=== PATIENT | male | born 1955 | race Hispanic/Latino ===

== ENCOUNTER 2018-04-03 13:52 | Inpatient (IN) | payer BC ==
--- NOTE | 2018-04-03 14:27 | ED PDOC ---
Arrival/HPI - General Chief Complaint: GI Problem Time Seen by Provider: 04/03/18 13:54 Historian: Patient - Critical Care Critical Care Minutes: 45 minutes - History of Present Illness Narrative History of Present Illness (Text): 04/03/18 14:27 63 year old male, with no significant past medical history and history of alcohol use, was referred to the ED by Dr. Bagley for medical evaluation of anemia + fatigue to r/o GI bleed and concern for bilateral oral tumors today. Patient informs bleeding from gums and black tarry stool associated with generalized abdominal pain for past month. Patient reports generalized weakness secondary to symptoms but denies any other medical complaints. Patient denies any fevers, chills, headache, dizziness, chest pain, shortness of breath, dyspnea on exertion, cough, nausea, vomiting, diarrhea, back pain, neck pain, or any other complaints. PMD: Dr. Bagley Time/Duration: > month Symptom Onset: Gradual Symptom Course: Unchanged Activities at Onset: Light Context: Other (Referred by Dr. Bagley) Past Medical History - Provider Review Nursing Documentation Reviewed: Yes - Infectious Disease Hx of Infectious Diseases: None Family/Social History - Physician Review Nursing Documentation Reviewed: Yes Family/Social History: Unknown Family HX Allergies/Home Meds Allergies/Adverse Reactions: Allergies No Known Allergies Allergy (Verified 04/03/18 22:52) Home Medications: Home Meds Medication Instructions Recorded Confirmed No Known Home Med 04/03/18 04/03/18 Review of Systems - Physician Review All systems were reviewed & negative as marked: Yes - Review of Systems Constitutional: Fatigue, Other (Generalized weakness). absent: Fevers Eyes: absent: Vision Changes, Photophobia, Eye Pain ENT: Other (Bleeding from gums). absent: Hearing Changes, Tinnitus Respiratory: absent: SOB, Cough Cardiovascular: absent: Chest Pain, Palpitations Gastrointestinal: Abdominal Pain, Hematochezia. absent: Constipation, Diarrhea Genitourinary Male: absent: Dysuria, Frequency Musculoskeletal: absent: Back Pain, Neck Pain Skin: absent: Rash Neurological: absent: Headache, Dizziness Psychiatric: absent: Anxiety Physical Exam Vital Signs Reviewed: Yes Vital Signs Temp Pulse Resp BP Pulse Ox 04/03/18 14:14 97.8 F 122 H 20 141/94 H 100 Temperature: Afebrile Blood Pressure: Hypertensive Pulse: Tachycardic Respiratory Rate: Normal Appearance: Positive for: Ill-Appearing, Cachectic Pain Distress: None Mental Status: Positive for: Alert and Oriented X 3 - Systems Exam Head: Present: Atraumatic, Normocephalic Pupils: Present: PERRL Extroacular Muscles: Present: EOMI Conjunctiva: Present: Normal Ears: Present: Normal Mouth: Present: Moist Mucous Membranes Neck: Present: Normal Range of Motion. No: Meningeal Signs Respiratory/Chest: Present: Clear to Auscultation, Good Air Exchange. No: Respiratory Distress, Accessory Muscle Use Cardiovascular: Present: Regular Rate and Rhythm, Normal S1, S2. No: Murmurs Abdomen: Present: Tenderness (Diffuse abdominal tenderness). No: Distention, Peritoneal Signs, Rebound, Guarding Rectal: Present: Other (+guaic) Back: Present: Normal Inspection. No: CVA Tenderness, Midline Tenderness Upper Extremity: Present: Normal Inspection. No: Cyanosis, Edema Lower Extremity: Present: Normal Inspection. No: Edema Neurological: Present: GCS=15, CN II-XII Intact, Speech Normal Skin: Present: Warm, Dry, Normal Color. No: Rashes Psychiatric: Present: Alert, Oriented x 3, Normal Insight, Normal Concentration Medical Decision Making ED Course and Treatment: 04/03/18 14:39 Impression: 63 year old male presents to the ED for evaluation of anemia, fatigue. Pt appears weak, diffusely. No FND. Abdominal mildly TTP in all [place]. +GUAIC. Likely GI Bleed vs anemia of chonric disease 2/2 etoh. Will seek labs. imaging. Pt denied any fall or trauma. He denies being any blood thinners. He notes that he is not vomiting blood, but that blood is coming out of mouth. No epistaxis. No appreciable bleeding lesions on visualization of oropharynx. Differential Diagnosis included but are not limited to: -- GI bleed Plan: -- Labs -- CT of Abdomen/Pelvis -- EKG -- Chest X-ray -- IV Fluids -- Reassess and disposition Prior Visits: Notes and results from previous visits were reviewed. Progress Notes: 04/03/18 14:39 EKG reviewed, shows sinus tachycardia at 107 bpm, No STEMI. PT afebrile, in NAD. 04/03/18 15:53 Hemoccult positive. Protonix ordered. JANES. Markedly increased WBC on labs: ?Cancer given clinical appearance and no infectious symptoms. 04/03/18 17:10 CT of Abdomen/Pelvis reviewed by radiologist. shows: IMPRESSION: There is a large amount of dense ascites consistent with hemoperitoneum. There is also a more discrete hematoma in the mesentery located at the level of the iliac crests anteriorly. This hematoma measures 5.8 x 7.2 cm. The etiology of this hemorrhage is uncertain. There is no evidence of free air to suggest bowel perforation. Hgb 8.5 but given findings will transfuse 3 units of blood ordered. Pt mentating well, MAEW, GCS15. Notes that he may have fallen last week on his bottom. No LOC or head impact. No other pain. Neck clear via NEXUS criteria. No FND on exam. No unilateral weakness, facial paralysis or slurred speech. ICU evaluated patient at bedside, accepts patient under their service. 04/03/18 17:13 Code Sepsis Activated, Anbiotics ordered. 04/03/18 17:[address] Bagley, who is aware and agrees with ED management plan, accepts patient under his service. Dr. Diaz on medicine consult. 04/03/18 17:13 Surgery resident paged. Will evaluate patient at bedside. 04/03/18 17:48 Surgery resident evaluated patient at bedside. Mass noted on XRAY: CT ordered. - Critical Care Critical Care Minutes: 45 minutes - RAD Interpretation Radiology Orders: 04/03/18 14:24 CHEST TWO VIEWS (PA/LAT) [RAD] Stat 04/03/18 14:26 ABDOMEN & PELVIS [ABD & PELVIS IV CONTRAST ONLY] [CT] Stat - Scribe Statement The provider has reviewed the documentation as recorded by the Scribcanelo Shipman. All medical record entries made by the Jovitaibe were at my direction and personally dictated by me. I have reviewed the chart and agree that the record accurately reflects my personal performance of the history, physical exam, medical decision making, and the department course for this patient. I have also personally directed, reviewed, and agree with the discharge instructions and disposition. Disposition/Present on Arrival - Present on Arrival Any Indicators Present on Arrival: No History of DVT/PE: No History of Uncontrolled Diabetes: No Urinary Catheter: No History of Decub. Ulcer: No History Surgical Site Infection Following: None - Disposition Have Diagnosis and Disposition been Completed?: Yes Diagnosis: Hemoperitoneum, Anemia, Leukocytosis, GI bleed Disposition: HOSPITALIZED Disposition Time: 17:42 Patient Problems: Current Active Problems Problem Status Onset Anemia Acute GI bleed Acute Hemoperitoneum Acute Leukocytosis Acute Condition: SERIOUS
[2018-04-03] MEDS: Sodium Chloride 0.9% 1,000 ML IV SCH (14:54)
[2018-04-03 15:08] LABS: HEMOGLOBIN 8.5 g/dL (14.0-18.0); MEAN CELL VOLUME 96.6 fl (80.0-105.0); MEAN CORPUSCULAR HEMOGLOBIN 32.2 pg (25.0-35.0); MEAN CORPUSCULAR HGB CONC 33.3 g/dl (31.0-37.0); RBC 2.64 10^6/uL (3.5-6.1)
[2018-04-03 15:09] LABS: MEAN PLATELET VOLUME 10.7 fl (7.0-11.0); PLATELET COUNT 217 10^3/uL (120.0-450.0); RED CELL DISTRIBUTION WIDTH 14.3 % (11.5-14.5); WHITE BLOOD COUNT 48.7 10^3/uL (4.5-11.0)
[2018-04-03 15:10] LABS: INR 1.2; PARTIAL THROMBOPLASTIN TIME 26.8 Seconds (26.9-38.3); PROTHROMBIN TIME 13.3 SECONDS (9.4-12.5)
[2018-04-03 15:12] LABS: ALB/GLOB RATIO 0.9 (1.1-1.8); ALBUMIN 3.4 g/dL (3.0-4.8); CALCIUM 8.7 mg/dL (8.4-10.5)
[2018-04-03 15:30] LABS: LYMPHOCYTE 5 % (22.0-35.0); MONOCYTE 5 % (1.0-6.0); NEUTROPHIL 90 % (50.0-70.0)
[2018-04-03 15:31] LABS: HYPOCHROMIA SLIGHT; LARGE PLATELETS PRESENT; PLATELET ESTIMATE NORMAL (NORMAL)
[2018-04-03 15:33] LABS: BASO % 0.1 % (0.0-3.0); MONO % 4.1 % (1.0-6.0)
[2018-04-03] MEDS ORDERED: Piperacillin/Tazobact 3.375 gm 100 ML IVPB STA (17:08)
[2018-04-03] MEDS ORDERED: Vancomycin 1gm in NS 250ml 1 GM/250 ML BAG IVPB STA (17:08)
--- NOTE | 2018-04-03 17:10 | CT ---
Date of service: 04/03/2018 PROCEDURE: CT Abdomen and Pelvis without intravenous contrast HISTORY: abd pain COMPARISON: None. TECHNIQUE: Without contrast.. Contrast dose: Radiation dose: Total exam DLP = 268.03 mGy-cm. This CT exam was performed using one or more of the following dose reduction techniques: Automated exposure control, adjustment of the mA and/or kV according to patient size, and/or use of iterative reconstruction technique. FINDINGS: LOWER THORAX: 7 mm nodule at the right lung base LIVER: Unremarkable. No gross lesion or ductal dilatation. GALLBLADDER AND BILE DUCTS: Unremarkable. PANCREAS: Unremarkable. No gross lesion or ductal dilatation. SPLEEN: Unremarkable. ADRENALS: There is a large left adrenal mass measuring 36 by 50 mm. There is also enlargement of the right adrenal gland measuring 16 x 42 mm. KIDNEYS AND URETERS: Unremarkable. No hydronephrosis. No solid mass. VASCULATURE: Unremarkable. No aortic aneurysm. No aortic atherosclerotic calcification or mural plaque present. BOWEL: Unremarkable. No obstruction. No gross mural thickening. APPENDIX: Unremarkable. Normal appendix. PERITONEUM: There is a large amount of dense ascites consistent with hemoperitoneum. There is also a more discrete hematoma in the mesentery located at the level of the iliac crests anteriorly. This hematoma measures 5.8 x 7.2 cm. The etiology of this hemorrhage is uncertain. There is no evidence of free air to suggest bowel perforation. The findings were discussed with Dr. Chisholm at 5:05 p.m. LYMPH NODES: Unremarkable. No enlarged lymph nodes. BLADDER: Unremarkable. REPRODUCTIVE: Unremarkable. BONES: No acute fracture. OTHER FINDINGS: None. IMPRESSION: There is a large amount of dense ascites consistent with hemoperitoneum. There is also a more discrete hematoma in the mesentery located at the level of the iliac crests anteriorly. This hematoma measures 5.8 x 7.2 cm. The etiology of this hemorrhage is uncertain. There is no evidence of free air to suggest bowel perforation.
[2018-04-03] MEDS: Pantoprazole 40mg/100mL NS 40 MG/100 ML BAG IVPB SCH ×2 (17:32→21:36)
--- NOTE | 2018-04-03 17:36 | CP.PCM.CON ---
History of Present Illness - History of Present Illness History of Present Illness: MICU CONSULT NOTE HPI Patient is 63yo male with PMhx of heavy EtOH abuse (12-14cans of beer/day), smoker 1.5pks per day x 40y, unknown dental issues/oral mass, presents from PMDs office as referral for worsening faitgue, malaise, and anemia. Pt noted have significant HH drop 18-->8.5, in less than 6 months, associated with failure, D OE, and weight loss of unknown amount. Pt had CT A/P which demonstrated hemoperitoneum and mesenteric hematoma. Pt denies N/V/D, endorses melena and mild abd pain. No other constitutional symptoms Surgery consulted by ER PMHx as above PsHx As above Meds NONE Allergies NKDA FHx CAD Social smokes 1/5pk per day, drinks 12-14 cans of beer per day, denies illicit drug use Review of Systems - Review of Systems Review of Systems: as per HPI Past Patient History - Infectious Disease Hx of Infectious Diseases: None - Past Social History Smoking Status: Heavy Smoker > 10 Cigarettes Daily - CARDIAC Hx Cardiac Disorders: Yes Hx Hypertension: Yes - PULMONARY Hx Respiratory Disorders: No - NEUROLOGICAL Hx Neurological Disorder: No - HEENT Hx HEENT Problems: No - RENAL Hx Chronic Kidney Disease: No - ENDOCRINE/METABOLIC Hx Endocrine Disorders: No - HEMATOLOGICAL/ONCOLOGICAL Hx Blood Disorders: Yes Hx Cancer: Yes (ameloblastoma) - INTEGUMENTARY Hx Dermatological Problems: No - MUSCULOSKELETAL/RHEUMATOLOGICAL Hx Musculoskeletal Disorders: No - GASTROINTESTINAL Hx Gastrointestinal Disorders: No - GENITOURINARY/GYNECOLOGICAL Hx Genitourinary Disorders: No - PSYCHIATRIC Hx Psychophysiologic Disorder: No Hx Substance Use: No - SURGICAL HISTORY Hx Surgeries: No Meds Allergies/Adverse Reactions: Allergies Allergy/AdvReac Type Severity Reaction Status Date / Time No Known Allergies Allergy Verified 04/03/18 14:18 - Medications Medications: Current Medications Sodium Chloride (Sodium Chloride 0.9%) 1,000 mls @ 100 mls/hr IV .Q10H ODALIS Last Admin: 04/03/18 14:54 Dose: 100 mls/hr Pantoprazole Sodium (Protonix 40mg Ivpb) 40 mg in 100 mls @ 20 mls/hr IVPB .Q5H ODALIS Vancomycin HCl (Vancomycin 1gm) 1 gm in 250 mls @ 167 mls/hr IVPB STAT STA; Protocol Stop: 04/03/18 18:37 Piperacillin Sod/Tazobactam Sod (Zosyn 3.375 In Ns 100ml) 100 mls @ 200 mls/hr IVPB STAT STA; Protocol Stop: 04/03/18 17:37 Physical Exam - Constitutional Appears: Well, Non-toxic, No Acute Distress, Cachectic - Head Exam Head Exam: NORMAL INSPECTION - Eye Exam Eye Exam: Normal appearance - ENT Exam Additional comments: poor dentition - Neck Exam Neck exam: Positive for: Full Rom - Respiratory Exam Respiratory Exam: Clear to Auscultation Bilateral, NORMAL BREATHING PATTERN - Cardiovascular Exam Cardiovascular Exam: REGULAR RHYTHM, +S1, +S2 - GI/Abdominal Exam GI & Abdominal Exam: Normal Bowel Sounds, Soft - Back Exam Back exam: NORMAL INSPECTION - Neurological Exam Neurological exam: Alert, Oriented x3 Results - Vital Signs Recent Vital Signs: Last Vital Signs Temp 97.8 F 04/03/18 14:14 Pulse 104 H 04/03/18 17:23 Resp 18 04/03/18 17:23 BP 113/62 04/03/18 17:23 Pulse Ox 100 04/03/18 17:23 - Labs Result Diagrams: 04/03/18 14:37 04/03/18 14:37 Labs: Laboratory Results - last 24 hr 04/03/18 04/03/18 04/03/18 14:37 14:37 14:37 WBC 48.7 H* D RBC 2.64 L Hgb 8.5 L D Hct 25.5 L MCV 96.6 MCH 32.2 MCHC 33.3 RDW 14.3 Plt Count 217 MPV 10.7 Neut % (Auto) TEST NOT PERFORMED Lymph % (Auto) TEST NOT PERFORMED Roosevelt % (Auto) 4.1 Eos % (Auto) 0.0 L Baso % (Auto) 0.1 Lymph # (Auto) TEST NOT PERFORMED [place] # (Auto) TEST NOT PERFORMED Eos # (Auto) TEST NOT PERFORMED Baso # (Auto) TEST NOT PERFORMED Absolute Neuts (auto) TEST NOT PERFORMED Neutrophils % (Manual) 90 H Lymphocytes % (Manual) 5 L Monocytes % (Manual) 5 Platelet Evaluation Normal Large Platelets Present Hypochromasia Slight PT 13.3 H INR 1.20 APTT 26.8 L Sodium Potassium Chloride Carbon Dioxide Anion Gap BUN Creatinine Est GFR ( Amer) Est GFR (Non-Af Amer) Random Glucose Calcium Magnesium Total Bilirubin AST ALT Alkaline Phosphatase Total Protein Albumin Globulin Albumin/Globulin Ratio Alcohol, Quantitative Blood Type O POSITIVE Blood Type Confirm Antibody Screen Negative Crossmatch See Detail BBK History Checked No verified bt 04/03/18 04/03/18 04/03/18 14:37 14:37 15:07 WBC RBC Hgb Hct MCV MCH MCHC RDW Plt Count MPV Neut % (Auto) Lymph % (Auto) Roosevelt % (Auto) Eos % (Auto) Baso % (Auto) Lymph # (Auto) Roosevelt # (Auto) Eos # (Auto) Baso # (Auto) Absolute Neuts (auto) Neutrophils % (Manual) Lymphocytes % (Manual) Monocytes % (Manual) Platelet Evaluation Large Platelets Hypochromasia PT INR APTT Sodium 126 L Potassium 4.7 Chloride 88 L Carbon Dioxide 18 L Anion Gap 25 H BUN 45 H Creatinine 2.2 H Est GFR ( Amer) 37 Est GFR (Non-Af Amer) 30 Random Glucose 150 H Calcium 8.7 Magnesium 2.2 Total Bilirubin 2.3 H AST 78 H D ALT 22 Alkaline Phosphatase 131 H Total Protein 7.2 Albumin 3.4 Globulin 3.8 Albumin/Globulin Ratio 0.9 L Alcohol, Quantitative < 10 Blood Type Blood Type Confirm O POSITIVE Antibody Screen Crossmatch BBK History Checked - Imaging and Cardiology CT scan - abdomen Status: Image reviewed by me, Report reviewed by me CT scan - pelvis Status: Image reviewed by me, Report reviewed by me Assessment & Plan - Assessment and Plan (Free Text) Assessment: 63yo male with PMHx of etoh abuse, heavy smoking, admitted with anemia, hemoperitoneum EtOH abuse Hx Smoking Anemia Leukocytosis Hemoperitoneum Mesenteric Hematoma Renal failure Hyponatremia - currently afebrile, BP stable, HR 90s, in NAD - labs, imaging, chart reviewed - Surgery consulted - typed and corss for prbc transfusion Recommend: - supp o2 as needed, duonebs PRN, Pulmicort BID, CT chest without contrast - panculture, UCx, BCx, check procal, UA, CXR - ID eval - IVF, NS with thiamine, folic acid, MVT - CIWA protocol - transfuse 2u PRBC - Surgical eval - ECHO - NPO - PPI - renal sono - Ulytes - GI ppx - DVT ppx, SCDs - Admit to MICU
[2018-04-03] MEDS ORDERED: Multivitamin (MVI) 10 ML, Thiamine 100 MG, Folic Acid 1 MG in Sodium Chloride 0.9% 1,00... IV ONE (17:52)
--- NOTE | 2018-04-03 18:03 | RAD ---
Date of service: 04/03/2018 HISTORY: weak COMPARISON: 01/09/2018 two-view chest TECHNIQUE: Chest PA and lateral FINDINGS: LUNGS: New mass right upper lobe 6.4 x 10.9 cm. This was not seen previously, even in retrospect. Although neoplasm is the most likely consideration, other possibilities include an acute vascular events/aneurysm. Loculated hemorrhage producing "pseudotumor." PLEURA: No significant pleural effusion identified. No pneumothorax apparent. CARDIOVASCULAR: No aortic atherosclerotic calcification present. Normal cardiac size. No pulmonary vascular congestion. OSSEOUS STRUCTURES: No significant abnormalities. VISUALIZED UPPER ABDOMEN: Normal. OTHER FINDINGS: None. IMPRESSION: Right upper lobe mass described in greater detail above. Recommendation: Follow-up CT scan of the thorax. Communication of results: I discussed the findings and follow-up recommendations with the attending physician in the emergency department Dr. Chisholm.
--- NOTE | 2018-04-03 18:41 | CP.PCM.HP ---
<Tevin Mcclure - Last Filed: 04/03/18 21:45> History of Present Illness - History of Present Illness History of Present Illness: Surgery H&P. Dr. Bagley 63yo M with PMHx of ETOH abuse, Heavy Tobacco use, who was sent to the hospital for workup of worsening fatigue. Patient states that he has been getting worsening fatigue and malaise over the past month. He does report some dizziness and generalized weakness over the past 2 weeks. He reports a fall down onto his buttocks 1 week ago, but denies any tenderness or soreness. Denies head trauma, denies any other trauma. Denies any N/V. Reports a vague epigastric abdominal discomfort. Denies any melena but does report some intermittent bright red blood per rectum which he associates to his hemorrhoids. He denies any urinary complaints. He does report bilateral oral cavity lesions which he states have been mildly bleeding and have had some purulent discharge over the past week. Denies any fevers or chills. Denies every having a screening colonoscopy. PMHx: ETOH abuse, HTN, Heavy tobacco use PSHx: Denies Family Hx: non-contributory Social Hx: Current Heavy ETOH use (12-15 cans of beer per day); Current Heavy Tobacco use (1-1.5 packs per day for 50+ years); Denies any illicit drugs NKDA Present on Admission - Present on Admission Any Indicators Present on Admission: No Review of Systems - Review of Systems All systems: reviewed and no additional remarkable complaints except - Constitutional Constitutional: Fatigue, Lethargy, Malaise. absent: Chills, Fever - EENT Nose/Mouth/Throat: Mouth Lesions - Cardiovascular Cardiovascular: absent: Chest Pain, Dyspnea - Respiratory Respiratory: absent: Dyspnea - Gastrointestinal Gastrointestinal: Abdominal Pain, Hematochezia. absent: Diarrhea, Melena, Nausea, Vomiting - Genitourinary Genitourinary: absent: Difficulty Urinating, Dysuria Past Patient History - Infectious Disease Hx of Infectious Diseases: None - Past Social History Smoking Status: Heavy Smoker > 10 Cigarettes Daily Alcohol: > 2 Drinks/Day Drugs: Denies - CARDIAC Hx Cardiac Disorders: Yes Hx Hypertension: Yes - PULMONARY Hx Respiratory Disorders: No - NEUROLOGICAL Hx Neurological Disorder: No - HEENT Hx HEENT Problems: No - RENAL Hx Chronic Kidney Disease: No - ENDOCRINE/METABOLIC Hx Endocrine Disorders: No - HEMATOLOGICAL/ONCOLOGICAL Hx Blood Disorders: Yes Hx Cancer: Yes (ameloblastoma) - INTEGUMENTARY Hx Dermatological Problems: No - MUSCULOSKELETAL/RHEUMATOLOGICAL Hx Musculoskeletal Disorders: No - GASTROINTESTINAL Hx Gastrointestinal Disorders: No - GENITOURINARY/GYNECOLOGICAL Hx Genitourinary Disorders: No - PSYCHIATRIC Hx Psychophysiologic Disorder: No Hx Substance Use: No - SURGICAL HISTORY Hx Surgeries: No Meds Allergies/Adverse Reactions: Allergies Allergy/AdvReac Type Severity Reaction Status Date / Time No Known Allergies Allergy Verified 04/03/18 22:52 Physical Exam - Constitutional Appears: Non-toxic, No Acute Distress - Head Exam Head Exam: ATRAUMATIC, NORMAL INSPECTION, NORMOCEPHALIC - Eye Exam Eye Exam: EOMI - ENT Exam ENT Exam: Mucous Membranes Moist - Respiratory Exam Respiratory Exam: NORMAL BREATHING PATTERN. absent: Accessory Muscle Use, Respiratory Distress - Cardiovascular Exam Cardiovascular Exam: absent: JVD - GI/Abdominal Exam GI & Abdominal Exam: Soft. absent: Distended, Firm, Guarding, Rebound, Rigid, Tenderness - Extremities Exam Extremities exam: Positive for: normal inspection. Negative for: calf tenderness - Neurological Exam Neurological exam: Alert, Oriented x3 - Psychiatric Exam Psychiatric exam: Normal Affect, Normal Mood - Skin Skin Exam: Dry, Intact, Normal Color, Warm Results - Vital Signs Recent Vital Signs: Last Vital Signs Temp 97.8 F 04/03/18 14:14 Pulse 104 H 04/03/18 17:23 Resp 18 04/03/18 17:23 BP 113/62 04/03/18 17:23 Pulse Ox 100 04/03/18 17:23 - Labs Result Diagrams: 04/03/18 14:37 04/03/18 14:37 Labs: Laboratory Results - last 24 hr 04/03/18 04/03/18 04/03/18 14:37 14:37 14:37 WBC 48.7 H* D RBC 2.64 L Hgb 8.5 L D Hct 25.5 L MCV 96.6 MCH 32.2 MCHC 33.3 RDW 14.3 Plt Count 217 MPV 10.7 Neut % (Auto) TEST NOT PERFORMED Lymph % (Auto) TEST NOT PERFORMED [place] % (Auto) 4.1 Eos % (Auto) 0.0 L Baso % (Auto) 0.1 Lymph # (Auto) TEST NOT PERFORMED [place] # (Auto) TEST NOT PERFORMED Eos # (Auto) TEST NOT PERFORMED Baso # (Auto) TEST NOT PERFORMED Absolute Neuts (auto) TEST NOT PERFORMED Neutrophils % (Manual) 90 H Lymphocytes % (Manual) 5 L Monocytes % (Manual) 5 Platelet Evaluation Normal Large Platelets Present Hypochromasia Slight PT 13.3 H INR 1.20 APTT 26.8 L Sodium Potassium Chloride Carbon Dioxide Anion Gap BUN Creatinine Est GFR ( Amer) Est GFR (Non-Af Amer) Random Glucose Calcium Magnesium Total Bilirubin AST ALT Alkaline Phosphatase Total Protein Albumin Globulin Albumin/Globulin Ratio Alcohol, Quantitative Blood Type O POSITIVE Blood Type Confirm Antibody Screen Negative Crossmatch See Detail BBK History Checked No verified bt 04/03/18 04/03/18 04/03/18 14:37 14:37 15:07 WBC RBC Hgb Hct MCV MCH MCHC RDW Plt Count MPV Neut % (Auto) Lymph % (Auto) [place] % (Auto) Eos % (Auto) Baso % (Auto) Lymph # (Auto) [place] # (Auto) Eos # (Auto) Baso # (Auto) Absolute Neuts (auto) Neutrophils % (Manual) Lymphocytes % (Manual) Monocytes % (Manual) Platelet Evaluation Large Platelets Hypochromasia PT INR APTT Sodium 126 L Potassium 4.7 Chloride 88 L Carbon Dioxide 18 L Anion Gap 25 H BUN 45 H Creatinine 2.2 H Est GFR ( Amer) 37 Est GFR (Non-Af Amer) 30 Random Glucose 150 H Calcium 8.7 Magnesium 2.2 Total Bilirubin 2.3 H AST 78 H D ALT 22 Alkaline Phosphatase 131 H Total Protein 7.2 Albumin 3.4 Globulin 3.8 Albumin/Globulin Ratio 0.9 L Alcohol, Quantitative < 10 Blood Type Blood Type Confirm O POSITIVE Antibody Screen Crossmatch BBK History Checked Assessment & Plan - Assessment and Plan (Free Text) Assessment: 63yo M with PMHx of ETOH abuse, HTN, and heavy tobacco use. Here for fatigue. Found to have severe anemia. - CT abd/pelvis with evidence of possible hemoperitoneum. Large hematoma measuring approximately 6cm x 7cm in the pelvis. No evidence of free air. - Leukocytosis Plan: - MICU admit - Transfuse PRBCs as needed - Monitor H/H - Consult Internal medicine, appreciate recs - NPO - Protonix ggt - Ativan as needed for possible ETOH withdrawal - f/u Abdominal US Further recs as per Dr. Kevyn Mcclure PGY2 surgery <Eros Bagley - Last Filed: 04/04/18 10:12> Results - Vital Signs Recent Vital Signs: Last Vital Signs Temp 97.3 F L 04/04/18 04:02 Pulse 100 H 04/04/18 07:20 Resp 20 04/04/18 07:20 BP 141/71 04/04/18 07:00 Pulse Ox 98 04/04/18 07:20 - Labs Result Diagrams: 04/04/18 05:30 04/04/18 05:30 Labs: Laboratory Results - last 24 hr 04/03/18 04/03/18 04/03/18 14:37 14:37 14:37 WBC 48.7 H* D RBC 2.64 L Hgb 8.5 L D Hct 25.5 L MCV 96.6 MCH 32.2 MCHC 33.3 RDW 14.3 Plt Count 217 MPV 10.7 Neut % (Auto) TEST NOT PERFORMED Lymph % (Auto) TEST NOT PERFORMED [place] % (Auto) 4.1 Eos % (Auto) 0.0 L Baso % (Auto) 0.1 Lymph # (Auto) TEST NOT PERFORMED [place] # (Auto) TEST NOT PERFORMED Eos # (Auto) TEST NOT PERFORMED Baso # (Auto) TEST NOT PERFORMED Absolute Neuts (auto) TEST NOT PERFORMED Neutrophils % (Manual) 90 H Lymphocytes % (Manual) 5 L Monocytes % (Manual) 5 Platelet Evaluation Normal Large Platelets Present Hypochromasia Slight PT 13.3 H INR 1.20 APTT 26.8 L pO2 VBG pH VBG pCO2 VBG HCO3 VBG Total CO2 VBG O2 Sat (Calc) VBG Base Excess VBG Potassium Glucose Lactate FiO2 Sodium Potassium Chloride Carbon Dioxide Anion Gap BUN Creatinine Est GFR ( Amer) Est GFR (Non-Af Amer) Random Glucose Serum Osmolality Calcium Phosphorus Magnesium Total Bilirubin AST ALT Alkaline Phosphatase Total Protein Albumin Globulin Albumin/Globulin Ratio Venous Blood Potassium Ur Random Sodium Ur Random Potassium Urine Opiates Screen Urine Methadone Screen Ur Barbiturates Screen Ur Phencyclidine Scrn Ur Amphetamines Screen U Benzodiazepines Scrn U Oth Cocaine Metabols U Cannabinoids Screen Alcohol, Quantitative Blood Type O POSITIVE Blood Type Confirm Antibody Screen Negative Crossmatch See Detail BBK History Checked No verified bt 04/03/18 04/03/18 04/03/18 14:37 14:37 14:37 WBC RBC Hgb Hct MCV MCH MCHC RDW Plt Count MPV Neut % (Auto) Lymph % (Auto) [place] % (Auto) Eos % (Auto) Baso % (Auto) Lymph # (Auto) [place] # (Auto) Eos # (Auto) Baso # (Auto) Absolute Neuts (auto) Neutrophils % (Manual) Lymphocytes % (Manual) Monocytes % (Manual) Platelet Evaluation Large Platelets Hypochromasia PT INR APTT pO2 VBG pH VBG pCO2 VBG HCO3 VBG Total CO2 VBG O2 Sat (Calc) VBG Base Excess VBG Potassium Glucose Lactate FiO2 Sodium 126 L Potassium 4.7 Chloride 88 L Carbon Dioxide 18 L Anion Gap 25 H BUN 45 H Creatinine 2.2 H Est GFR ( Amer) 37 Est GFR (Non-Af Amer) 30 Random Glucose 150 H Serum Osmolality 279 Calcium 8.7 Phosphorus Magnesium 2.2 Total Bilirubin 2.3 H AST 78 H D ALT 22 Alkaline Phosphatase 131 H Total Protein 7.2 Albumin 3.4 Globulin 3.8 Albumin/Globulin Ratio 0.9 L Venous Blood Potassium Ur Random Sodium Ur Random Potassium Urine Opiates Screen Urine Methadone Screen Ur Barbiturates Screen Ur Phencyclidine Scrn Ur Amphetamines Screen U Benzodiazepines Scrn U Oth Cocaine Metabols U Cannabinoids Screen Alcohol, Quantitative < 10 Blood Type Blood Type Confirm Antibody Screen Crossmatch BBK History Checked 04/03/18 04/04/18 04/04/18 15:07 05:30 05:30 WBC 26.9 H* D RBC 3.21 L Hgb 9.8 L Hct 29.0 L MCV 90.3 D MCH 30.5 MCHC 33.8 RDW 15.2 H Plt Count 151 MPV 10.4 Neut % (Auto) 89.9 H Lymph % (Auto) 5.9 L [place] % (Auto) 4.1 Eos % (Auto) 0.1 L Baso % (Auto) 0.0 Lymph # (Auto) 1.6 [place] # (Auto) 1.1 H Eos # (Auto) 0.0 Baso # (Auto) 0.01 Absolute Neuts (auto) 24.19 H Neutrophils % (Manual) Lymphocytes % (Manual) Monocytes % (Manual) Platelet Evaluation Large Platelets Hypochromasia PT INR APTT pO2 VBG pH VBG pCO2 VBG HCO3 VBG Total CO2 VBG O2 Sat (Calc) VBG Base Excess VBG Potassium Glucose Lactate FiO2 Sodium 131 L Potassium 3.6 Chloride 96 L Carbon Dioxide 26 Anion Gap 13 BUN 46 H Creatinine 2.0 H Est GFR ( Amer) 41 Est GFR (Non-Af Amer) 34 Random Glucose 95 Serum Osmolality Calcium 7.9 L Phosphorus 4.8 H Magnesium 2.2 Total Bilirubin 3.3 H AST 47 ALT 20 Alkaline Phosphatase 112 Total Protein 6.0 Albumin 2.7 L Globulin 3.2 Albumin/Globulin Ratio 0.8 L Venous Blood Potassium Ur Random Sodium Ur Random Potassium Urine Opiates Screen Urine Methadone Screen Ur Barbiturates Screen Ur Phencyclidine Scrn Ur Amphetamines Screen U Benzodiazepines Scrn U Oth Cocaine Metabols U Cannabinoids Screen Alcohol, Quantitative Blood Type Blood Type Confirm O POSITIVE Antibody Screen Crossmatch BBK History Checked 04/04/18 04/04/18 04/04/18 07:10 08:00 09:54 WBC RBC Hgb Hct MCV MCH MCHC RDW Plt Count MPV Neut % (Auto) Lymph % (Auto) [place] % (Auto) Eos % (Auto) Baso % (Auto) Lymph # (Auto) [place] # (Auto) Eos # (Auto) Baso # (Auto) Absolute Neuts (auto) Neutrophils % (Manual) Lymphocytes % (Manual) Monocytes % (Manual) Platelet Evaluation Large Platelets Hypochromasia PT 12.8 H INR 1.13 APTT 27.4 pO2 26 L VBG pH 7.34 VBG pCO2 50.0 VBG HCO3 27.0 VBG Total CO2 28.5 H VBG O2 Sat (Calc) 53.1 VBG Base Excess 0.5 VBG Potassium 4.1 Glucose 103 Lactate 1.1 FiO2 21.0 Sodium 132.0 Potassium Chloride 100.0 Carbon Dioxide Anion Gap BUN Creatinine Est GFR ( Amer) Est GFR (Non-Af Amer) Random Glucose Serum Osmolality Calcium Phosphorus Magnesium Total Bilirubin AST ALT Alkaline Phosphatase Total Protein Albumin Globulin Albumin/Globulin Ratio Venous Blood Potassium 4.1 Ur Random Sodium 20 Ur Random Potassium 73.2 Urine Opiates Screen Negative Urine Methadone Screen Negative Ur Barbiturates Screen Negative Ur Phencyclidine Scrn Negative Ur Amphetamines Screen Negative U Benzodiazepines Scrn Negative U Oth Cocaine Metabols Negative U Cannabinoids Screen Negative Alcohol, Quantitative Blood Type Blood Type Confirm Antibody Screen Crossmatch BBK History Checked Assessment & Plan - Assessment and Plan (Free Text) Plan: Dx Massive Hemorrhage(Mesenteric)-Anemia Impending DTs 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
--- NOTE | 2018-04-03 22:11 | PCM.SEPTIC ---
<Corrina Ndiaye L - Last Filed: 04/03/18 23:43> Sepsis Progress Note - Reassessment Type Date of Evaluation: 04/03/18 Time of Evaluation: 22:11 Reassessment Type: Non-invasive reassessment - Non Invasive Reassessment Were the most recent vital sign reviewed: Yes Vital Sign (Latest): Temp Pulse Resp BP Pulse Ox 98 F 94 H 20 113/50 L 100 04/03/18 21:55 04/03/18 21:55 04/03/18 21:55 04/03/18 21:55 04/03/18 19:28 Cardiovascular: Yes: Regular Rate, Rhythm. No: Tachycardia Respiratory: Yes: Normal Breath Sounds. No: Respiratory Distress Capillary Refill: Normal (Less than 2 sec) Skin: Normal Color, Warm, Dry <Chasidy Mclaughlin - Last Filed: 04/04/18 19:25> Sepsis Progress Note - Non Invasive Reassessment Vital Sign (Latest): Temp Pulse Resp BP Pulse Ox 97.3 F L 100 H 20 141/71 98 04/04/18 04:02 04/04/18 07:20 04/04/18 07:20 04/04/18 07:00 04/04/18 07:20 Attending/Attestation - Attestation I have personally seen and examined this patient.: No I have fully participated in the care of the patient.: No I have reviewed all pertinent clinical information, including history, physical exam and plan: No
--- NOTE | 2018-04-03 23:14 | CARD ---
APPROVED REPORT Date of service: 04/03/2018 EKG Measurement Heart [id number] <Conclusion> Sinus tachycardia Baseline artifact Otherwise normal ECG
[2018-04-03] MEDS ORDERED: Influenza Vaccine 60 mcg/0.5 mL SYR (4YR UP) IM ONE (23:22)
[2018-04-03] MEDS ORDERED: Pneumococcal 23-Valent Vaccine IM ONE (23:22)
[2018-04-03 23:23] VITALS: BMI 20.2
[2018-04-04] MEDS: Pantoprazole 40mg/100mL NS 40 MG/100 ML BAG IVPB SCH ×5 (01:12→23:35)
[2018-04-04] MEDS: Sodium Chloride 0.9% 1,000 ML IV SCH (02:00)
[2018-04-04 06:45] LABS: BASO # 0.01 K/mm3 (0.0-2.0); EOS % 0.1 % (1.5-5.0); LYMPH # 1.6 (1.2-3.4); LYMPH % 5.9 % (22.0-35.0); MEAN CELL VOLUME 90.3 fl (80.0-105.0); MEAN CORPUSCULAR HEMOGLOBIN 30.5 pg (25.0-35.0); MEAN CORPUSCULAR HGB CONC 33.8 g/dl (31.0-37.0); MEAN PLATELET VOLUME 10.4 fl (7.0-11.0); MONO # 1.1 (0.1-0.6); MONO % 4.1 % (1.0-6.0); RBC 3.21 10^6/uL (3.5-6.1); RED CELL DISTRIBUTION WIDTH 15.2 % (11.5-14.5)
[2018-04-04] MEDS: Piperacillin/Tazobact 3.375 gm 100 ML IVPB SCH ×4 (07:00→23:23)
[2018-04-04 07:20] LABS: ALB/GLOB RATIO 0.8 (1.1-1.8); ALBUMIN 2.7 g/dL (3.0-4.8); CALCIUM 7.9 mg/dL (8.4-10.5)
[2018-04-04 07:34] LABS: INR 1.13; PARTIAL THROMBOPLASTIN TIME 27.4 Seconds (26.9-38.3); PROTHROMBIN TIME 12.8 SECONDS (9.4-12.5)
[2018-04-04 07:35] LABS: HEMOGLOBIN 9.8 g/dL (14.0-18.0); WHITE BLOOD COUNT 26.9 10^3/uL (4.5-11.0)
--- NOTE | 2018-04-04 08:50 | CT ---
Date of service: 04/03/2018 PROCEDURE: CT Chest without contrast HISTORY: mass in chest? COMPARISON: None available. TECHNIQUE: Contiguous axial images were obtained through the chest without intravenous contrast enhancement. Sagittal and coronal reconstructions were performed. Radiation dose: Total exam DLP = 219.73 mGy-cm. This CT exam was performed using one or more of the following dose reduction techniques: Automated exposure control, adjustment of the mA and/or kV according to patient size, and/or use of iterative reconstruction technique. FINDINGS: LUNGS: Large right suprahilar mass measuring roughly 6.3 x 7.8 centimeters, possibly intra lung parenchymal or in the mediastinum. Additional infiltrate in the right lower lobe. MEDIASTINUM: Mild 4.2 centimeter ascending aortic aneurysm. Normal sized heart. Main pulmonary artery unremarkable. No vascular congestion. No lymphadenopathy. PLEURA: No pleural fluid. No pneumothorax. BONES: No fracture. No destructive lesion. UPPER ABDOMEN: Please see CT abdomen and pelvis report dated same day OTHER FINDINGS: None. IMPRESSION: Large right suprahilar mass measuring roughly 6.3 x 7.8 centimeters, possibly intra lung parenchymal or in the mediastinum. Additional infiltrate in the right lower lobe.
[2018-04-04 09:04] LABS: BARBITURATES, UR NEGATIVE (NEGATIVE); BENZODIAZEPINES, UR NEGATIVE (NEGATIVE); OPIATES, UR NEGATIVE (NEGATIVE); PHENCYCLIDINE, UR NEGATIVE (NEGATIVE)
--- NOTE | 2018-04-04 09:38 | RAD ---
Date of service: 04/04/2018 HISTORY: ?chest mass COMPARISON: 04/03/2018 FINDINGS: LUNGS: There is a large 6 x 10 cm mass in the right upper lobe adjacent to the mediastinum. This is unchanged. There is deviation of the trachea to the left PLEURA: No significant pleural effusion identified, no pneumothorax apparent. CARDIOVASCULAR: No aortic atherosclerotic calcification present. Normal cardiac size. No pulmonary vascular congestion. OSSEOUS STRUCTURES: No significant abnormalities. VISUALIZED UPPER ABDOMEN: Normal. OTHER FINDINGS: None. IMPRESSION: There is a large 6 x 10 cm mass in the right upper lobe adjacent to the mediastinum. This is unchanged. There is deviation of the trachea to the left
--- NOTE | 2018-04-04 09:50 | CP.PCM.PN ---
Subjective - Date & Time of Evaluation Date of Evaluation: 04/04/18 Time of Evaluation: 09:46 - Subjective Subjective: Surgery Progress Note for Dr. Bagley S/E at bedside. Limited ROS as patient AMS. Possibly from alcohol withdrawal or ativan. Able to answer yes or no if continuously aroused and multiple cues given. Objective - Vital Signs/Intake and Output Vital Signs (last 24 hours): Temp Pulse Resp BP Pulse Ox 97.3 F L 100 H 20 141/71 98 04/04/18 04:02 04/04/18 07:20 04/04/18 07:20 04/04/18 07:00 04/04/18 07:20 Intake and Output: 04/04/18 04/04/18 06:59 18:59 Intake Total 1186 Balance 1186 - Medications Medications: Current Medications Sodium Chloride (Sodium Chloride 0.9%) 1,000 mls @ 100 mls/hr IV .Q10H ODALIS Last Admin: 04/04/18 02:00 Dose: 100 mls/hr Pantoprazole Sodium (Protonix 40mg Ivpb) 40 mg in 100 mls @ 20 mls/hr IVPB .Q5H ODALIS Last Admin: 04/04/18 04:38 Dose: 20 mls/hr Piperacillin Sod/Tazobactam Sod (Zosyn 3.375 In Ns 100ml) 100 mls @ 25 mls/hr IVPB Q8 ODALIS; Protocol Stop: 04/10/18 23:31 Last Admin: 04/04/18 07:00 Dose: 25 mls/hr Lorazepam (Ativan) 2 mg IVP Q4 ODALIS; Protocol Last Admin: 04/04/18 08:17 Dose: 2 mg Lorazepam (Ativan) 1 mg IVP Q2H PRN; Protocol PRN Reason: Symptoms of alcohol withdrawl - Labs Labs: 04/04/18 05:30 04/04/18 05:30 PT 12.8 SECONDS (9.4-12.5) H 04/04/18 07:10 INR 1.13 04/04/18 07:10 APTT 27.4 Seconds (26.9-38.3) 04/04/18 07:10 - Additional Findings Additional findings: - Constitutional Appears: Non-toxic, No Acute Distress - Head Exam Head Exam: ATRAUMATIC, NORMAL INSPECTION, NORMOCEPHALIC - Eye Exam Eye Exam: EOMI - ENT Exam ENT Exam: Mucous Membranes Moist - Respiratory Exam Respiratory Exam: NORMAL BREATHING PATTERN. absent: Accessory Muscle Use, Respiratory Distress - Cardiovascular Exam Cardiovascular Exam: absent: JVD - GI/Abdominal Exam GI & Abdominal Exam: Soft, Distended. Absent: Firm, Guarding, Rebound, Rigid, Tenderness - Extremities Exam Extremities exam: Positive for: normal inspection. Negative for: calf tenderness - Neurological Exam Neurological exam: Absent: Awake, Alert, Orientedx3 - Psychiatric Exam Psychiatric exam: Normal Affect, Normal Mood - Skin Skin Exam: Dry, Intact, Normal Color, Warm Assessment and Plan - Assessment and Plan (Free Text) Assessment: 63yo M with PMHx of ETOH abuse, HTN, and heavy tobacco use. Here for fatigue. Found to have severe anemia. - CT abd/pelvis with evidence of possible hemoperitoneum. Large hematoma measuring approximately 6cm x 7cm in the pelvis. No evidence of free air. - Leukocytosis Plan: Leukocytosis trending down but repeat showed increase in WBC; procal pending; Continue IV abx; lara cx pending; appreciate medicine team input and infectious disease input patient AMS; etiology EtOH withdrawal vs ativan vs infectious etiology monitor H&H replete as needed, improving s/p 2 units of pRBCs serial CMPS, hyponatremia improving, Cr improving Continue CIWA protocol Hypoechoic lesion seen on ultrasound; Hemopertioneum seen on CT ab/pelvis; Large right suprialhilar mass on Chest CT No surgical intervention warranted at this time Further recs as per Dr. Bagley PGY-1 Laureano Hinds
[2018-04-04 09:59] LABS: VENOUS BLOOD GAS BASE EXCESS 0.5 mmol/L (0.0-2.0); VENOUS BLOOD GAS PO2 26 mm/Hg (30-55); VENOUS BLOOD PH 7.34 (7.32-7.43)
[2018-04-04] MEDS ORDERED: Multivitamin (MVI) 10 ML, Thiamine 100 MG, Folic Acid 1 MG in Sodium Chloride 0.9% 1,00... IV ONE (10:01)
--- NOTE | 2018-04-04 10:04 | CP.PCM.PN ---
Subjective - Date & Time of Evaluation Date of Evaluation: 04/04/18 Time of Evaluation: 07:00 - Subjective Subjective: Mendoza Duke DO, PGY-1 Hospitalist Progress Note for Dr. Diza Patient was seen and examined at bedside this AM. Objective - Vital Signs/Intake and Output Vital Signs (last 24 hours): Temp Pulse Resp BP Pulse Ox 97.3 F L 100 H 20 141/71 98 04/04/18 04:02 04/04/18 07:20 04/04/18 07:20 04/04/18 07:00 04/04/18 07:20 Intake and Output: 04/04/18 04/04/18 06:59 18:59 Intake Total 1186 Balance 1186 - Medications Medications: Current Medications Pantoprazole Sodium (Protonix 40mg Ivpb) 40 mg in 100 mls @ 20 mls/hr IVPB .Q5H ODALIS Last Admin: 04/04/18 09:52 Dose: 20 mls/hr Piperacillin Sod/Tazobactam Sod (Zosyn 3.375 In Ns 100ml) 100 mls @ 25 mls/hr IVPB Q8 ODALIS; Protocol Stop: 04/10/18 23:31 Last Admin: 04/04/18 07:00 Dose: 25 mls/hr Multivitamins/Vitamin C 10 ml/Thiamine HCl 100 mg/ Folic Acid 1 mg/ Sodium Chloride 1,011.2 mls @ 100 mls/hr IV .Q10H7M ONE Stop: 04/04/18 20:07 Lorazepam (Ativan) 2 mg IVP Q4 ODALIS; Protocol Last Admin: 04/04/18 08:17 Dose: 2 mg Lorazepam (Ativan) 1 mg IVP Q2H PRN; Protocol PRN Reason: Symptoms of alcohol withdrawl - Labs Labs: 04/04/18 05:30 04/04/18 05:30 PT 12.8 SECONDS (9.4-12.5) H 04/04/18 07:10 INR 1.13 04/04/18 07:10 APTT 27.4 Seconds (26.9-38.3) 04/04/18 07:10
--- NOTE | 2018-04-04 10:59 | US ---
Date of service: 04/03/2018 HISTORY: adrenal mass, hemoperitoneum COMPARISON: CT same day TECHNIQUE: Sonographic evaluation of the abdomen. FINDINGS: LIVER: Measures 16.78 x 11.07 cm. Increased echogenicity of the liver parenchyma. There is a hypoechoic lesion in the right lobe of the liver measuring 2.18 x 1.23 by 2.38 cm. GALLBLADDER: Unremarkable. No gallstones. COMMON BILE DUCT: Measures 4 mm. No stones. No dilatation. PANCREAS: Unremarkable as visualized. No mass. No ductal dilatation. RIGHT KIDNEY: Measures 9.73 x 3.84 x 5.83cm. Normal echogenicity. No calculus, mass, or hydronephrosis. LEFT KIDNEY: Measures 9.83 x 5.27 x 5.73cm. Normal echogenicity. No calculus, mass, or hydronephrosis. SPLEEN: Normal in size and contour. No mass. 12.41 x 6.13 AORTA: No aneurysmal dilatation. IVC: Unremarkable. OTHER FINDINGS: As seen on CT there is large amount of ascites as well as a mass in the lower abdomen above the bladder. This measures 9.52 x 4.78 x 6.37 cm The report concurs with the preliminary [facility] report IMPRESSION: Hypoechoic lesion in the right lobe of the liver. Mass in the lower abdomen as seen on CT.
--- NOTE | 2018-04-04 12:11 | CP.CCUPN ---
<GurpreetAnya - Last Filed: 04/04/18 12:22> CCU Subjective - Physician Review Subjective (Free Text): CRITICAL CARE PROGRESS NOTE Anya Vázquez PGY1 Pt seen and examined at bedside in ICU this am. Pt is lethargic/somnolent. He is denying complaints, however is very lethargic and ROS is limited CCU Objective - Vital Signs / Intake & Output Intake and Output (Last 8hrs): Intake & Output 04/03/18 04/04/18 04/04/18 22:59 06:59 14:59 Intake Total 425 761 Balance 425 761 Weight 60.6 kg 58.468 kg Intake: Blood Product 325 611 Apheresis Rbc Cp2d As3 Lr 286 2nd Unit [id number] Red Blood Cells Cpd As1 0 325 Lr Unit [id number] Red Blood Cells Cpd As1 325 Lr Unit [id number] Other 100 150 Apheresis Rbc Cp2d As3 Lr 100 2nd Unit [id number] Red Blood Cells Cpd As1 50 Lr Unit [id number] Red Blood Cells Cpd As1 100 Lr Unit [id number] - Physical Exam Head: Positive for: Atraumatic, Normocephalic Pupils: Positive for: PERRL Extroacular Muscles: Positive for: EOMI Conjunctiva: Positive for: Normal Mouth: Positive for: Moist Mucous Membranes Respiratory/Chest: Positive for: Clear to Auscultation, Good Air Exchange. Negative for: Respiratory Distress, Accessory Muscle Use Cardiovascular: Positive for: Regular Rate and Rhythm, Normal S1, S2. Negative for: Murmurs Abdomen: Positive for: Tenderness (Diffuse abdominal tenderness). Negative for: Distention, Peritoneal Signs Upper Extremity: Positive for: Normal Inspection. Negative for: Cyanosis, Edema Lower Extremity: Positive for: Normal Inspection. Negative for: Edema Neurological: Positive for: GCS=15, CN II-XII Intact Skin: Positive for: Warm, Dry, Normal Color. Negative for: Rashes Psychiatric: Positive for: Alert, Oriented x 3, Lethargic - Medications Active Medications: Active Medications Generic Name Dose Route Start Last Admin Trade Name Freq PRN Reason Stop Dose Admin Pantoprazole Sodium 40 mg in 100 mls @ 20 mls/hr 04/03/18 16:30 04/04/18 09:52 Protonix 40mg Ivpb IVPB 20 mls/hr .Q5H ODALIS Administration Piperacillin Sod/Tazobactam Sod 100 mls @ 25 mls/hr 04/03/18 23:30 04/04/18 07:00 Zosyn 3.375 In Ns 100ml IVPB 04/10/18 23:31 25 mls/hr Q8 ODALIS Administration Protocol Multivitamins/Vitamin C 10 ml/ 1,011.2 mls @ 100 mls/hr 04/04/18 10:01 04/04/18 11:28 Thiamine HCl 100 mg/ Folic IV 04/04/18 20:07 100 mls/hr Acid 1 mg/ Sodium Chloride .Q10H7M ONE Administration Lorazepam 2 mg 04/04/18 08:00 04/04/18 08:17 Ativan IVP 2 mg Q4 ODALIS Administration Protocol Lorazepam 1 mg 04/04/18 07:21 04/04/18 11:53 Ativan IVP 1 mg Q2H PRN Administration Symptoms of alcohol withdrawl Protocol - Patient Studies Lab Studies: Lab Studies 04/04/18 04/04/18 04/04/18 Range/Units 09:54 08:00 07:10 WBC (4.5-11.0) 10^3/uL RBC (3.5-6.1) 10^6/uL Hgb (14.0-18.0) g/dL Hct (42.0-52.0) % MCV (80.0-105.0) fl MCH (25.0-35.0) pg MCHC (31.0-37.0) g/dl RDW (11.5-14.5) % Plt Count (120.0-450.0) 10^3/uL MPV (7.0-11.0) fl Neut % (Auto) Lymph % (Auto) Marshall % (Auto) (1.0-6.0) % Eos % (Auto) (1.5-5.0) % Baso % (Auto) (0.0-3.0) % Lymph # (Auto) Marshall # (Auto) Eos # (Auto) Baso # (Auto) Absolute Neuts (auto) Neutrophils % (Manual) (50.0-70.0) % Lymphocytes % (Manual) (22.0-35.0) % Monocytes % (Manual) (1.0-6.0) % Platelet Evaluation (NORMAL) Large Platelets Hypochromasia PT 12.8 H (9.4-12.5) SECONDS INR 1.13 APTT 27.4 (26.9-38.3) Seconds pO2 26 L (30-55) mm/Hg VBG pH 7.34 (7.32-7.43) VBG pCO2 50.0 (40-60) VBG HCO3 27.0 (21-28) mmol/l VBG Total CO2 28.5 H (22-28) mmol.L VBG O2 Sat (Calc) 53.1 (40-65) % VBG Base Excess 0.5 (0.0-2.0) mmol/L VBG Potassium 4.1 (3.6-5.2) mmol/L Glucose 103 (75-110) mg/dl Lactate 1.1 (0.7-2.1) mmol/L FiO2 21.0 % Sodium 132.0 (132-148) mmol/L Potassium (3.6-5.0) mmol/L Chloride 100.0 (98-107) mmol/L Carbon Dioxide (21-33) mmol/L Anion Gap (10-20) BUN (7-21) mg/dL Creatinine (0.8-1.5) mg/dl Est GFR ( Amer) Est GFR (Non-Af Amer) Random Glucose (70-110) mg/dL Serum Osmolality (272-300) mosm/kg Calcium (8.4-10.5) mg/dL Phosphorus (2.5-4.5) mg/dL Magnesium (1.7-2.2) mg/dL Total Bilirubin (0.2-1.3) mg/dL AST (17-59) U/L ALT (7-56) U/L Alkaline Phosphatase (38-126) U/L Total Protein (5.8-8.3) g/dL Albumin (3.0-4.8) g/dL Globulin gm/dL Albumin/Globulin Ratio (1.1-1.8) Venous Blood Potassium 4.1 (3.6-5.2) mmol/L Ur Random Sodium 20 meq/L Ur Random Potassium 73.2 meq/L Urine Opiates Screen Negative (NEGATIVE) Urine Methadone Screen Negative (NEGATIVE) Ur Barbiturates Screen Negative (NEGATIVE) Ur Phencyclidine Scrn Negative (NEGATIVE) Ur Amphetamines Screen Negative (NEGATIVE) U Benzodiazepines Scrn Negative (NEGATIVE) U Oth Cocaine Metabols Negative (NEGATIVE) U Cannabinoids Screen Negative (NEGATIVE) Alcohol, Quantitative (0-10) mg/dL Blood Type Blood Type Confirm Antibody Screen Crossmatch BBK History Checked 04/04/18 04/04/18 04/03/18 Range/Units 05:30 05:30 15:07 WBC 26.9 H* D (4.5-11.0) 10^3/uL RBC 3.21 L (3.5-6.1) 10^6/uL Hgb 9.8 L (14.0-18.0) g/dL Hct 29.0 L (42.0-52.0) % MCV 90.3 D (80.0-105.0) fl MCH 30.5 (25.0-35.0) pg MCHC 33.8 (31.0-37.0) g/dl RDW 15.2 H (11.5-14.5) % Plt Count 151 (120.0-450.0) 10^3/uL MPV 10.4 (7.0-11.0) fl Neut % (Auto) 89.9 H Lymph % (Auto) 5.9 L Marshall % (Auto) 4.1 (1.0-6.0) % Eos % (Auto) 0.1 L (1.5-5.0) % Baso % (Auto) 0.0 (0.0-3.0) % Lymph # (Auto) 1.6 Marshall # (Auto) 1.1 H Eos # (Auto) 0.0 Baso # (Auto) 0.01 Absolute Neuts (auto) 24.19 H Neutrophils % (Manual) (50.0-70.0) % Lymphocytes % (Manual) (22.0-35.0) % Monocytes % (Manual) (1.0-6.0) % Platelet Evaluation (NORMAL) Large Platelets Hypochromasia PT (9.4-12.5) SECONDS INR APTT (26.9-38.3) Seconds pO2 (30-55) mm/Hg VBG pH (7.32-7.43) VBG pCO2 (40-60) VBG HCO3 (21-28) mmol/l VBG Total CO2 (22-28) mmol.L VBG O2 Sat (Calc) (40-65) % VBG Base Excess (0.0-2.0) mmol/L VBG Potassium (3.6-5.2) mmol/L Glucose (75-110) mg/dl Lactate (0.7-2.1) mmol/L FiO2 % Sodium 131 L (132-148) mmol/L Potassium 3.6 (3.6-5.0) mmol/L Chloride 96 L (98-107) mmol/L Carbon Dioxide 26 (21-33) mmol/L Anion Gap 13 (10-20) BUN 46 H (7-21) mg/dL Creatinine 2.0 H (0.8-1.5) mg/dl Est GFR ( Amer) 41 Est GFR (Non-Af Amer) 34 Random Glucose 95 (70-110) mg/dL Serum Osmolality (272-300) mosm/kg Calcium 7.9 L (8.4-10.5) mg/dL Phosphorus 4.8 H (2.5-4.5) mg/dL Magnesium 2.2 (1.7-2.2) mg/dL Total Bilirubin 3.3 H (0.2-1.3) mg/dL AST 47 (17-59) U/L ALT 20 (7-56) U/L Alkaline Phosphatase 112 (38-126) U/L Total Protein 6.0 (5.8-8.3) g/dL Albumin 2.7 L (3.0-4.8) g/dL Globulin 3.2 gm/dL Albumin/Globulin Ratio 0.8 L (1.1-1.8) Venous Blood Potassium (3.6-5.2) mmol/L Ur Random Sodium meq/L Ur Random Potassium meq/L Urine Opiates Screen (NEGATIVE) Urine Methadone Screen (NEGATIVE) Ur Barbiturates Screen (NEGATIVE) Ur Phencyclidine Scrn (NEGATIVE) Ur Amphetamines Screen (NEGATIVE) U Benzodiazepines Scrn (NEGATIVE) U Oth Cocaine Metabols (NEGATIVE) U Cannabinoids Screen (NEGATIVE) Alcohol, Quantitative (0-10) mg/dL Blood Type Blood Type Confirm O POSITIVE Antibody Screen Crossmatch BBK History Checked 04/03/18 04/03/18 04/03/18 Range/Units 14:37 14:37 14:37 WBC (4.5-11.0) 10^3/uL RBC (3.5-6.1) 10^6/uL Hgb (14.0-18.0) g/dL Hct (42.0-52.0) % MCV (80.0-105.0) fl MCH (25.0-35.0) pg MCHC (31.0-37.0) g/dl RDW (11.5-14.5) % Plt Count (120.0-450.0) 10^3/uL MPV (7.0-11.0) fl Neut % (Auto) Lymph % (Auto) Marshall % (Auto) (1.0-6.0) % Eos % (Auto) (1.5-5.0) % Baso % (Auto) (0.0-3.0) % Lymph # (Auto) Marshall # (Auto) Eos # (Auto) Baso # (Auto) Absolute Neuts (auto) Neutrophils % (Manual) (50.0-70.0) % Lymphocytes % (Manual) (22.0-35.0) % Monocytes % (Manual) (1.0-6.0) % Platelet Evaluation (NORMAL) Large Platelets Hypochromasia PT (9.4-12.5) SECONDS INR APTT (26.9-38.3) Seconds pO2 (30-55) mm/Hg VBG pH (7.32-7.43) VBG pCO2 (40-60) VBG HCO3 (21-28) mmol/l VBG Total CO2 (22-28) mmol.L VBG O2 Sat (Calc) (40-65) % VBG Base Excess (0.0-2.0) mmol/L VBG Potassium (3.6-5.2) mmol/L Glucose (75-110) mg/dl Lactate (0.7-2.1) mmol/L FiO2 % Sodium 126 L (132-148) mmol/L Potassium 4.7 (3.6-5.0) mmol/L Chloride 88 L (98-107) mmol/L Carbon Dioxide 18 L (21-33) mmol/L Anion Gap 25 H (10-20) BUN 45 H (7-21) mg/dL Creatinine 2.2 H (0.8-1.5) mg/dl Est GFR ( Amer) 37 Est GFR (Non-Af Amer) 30 Random Glucose 150 H (70-110) mg/dL Serum Osmolality 279 (272-300) mosm/kg Calcium 8.7 (8.4-10.5) mg/dL Phosphorus (2.5-4.5) mg/dL Magnesium 2.2 (1.7-2.2) mg/dL Total Bilirubin 2.3 H (0.2-1.3) mg/dL AST 78 H D (17-59) U/L ALT 22 (7-56) U/L Alkaline Phosphatase 131 H (38-126) U/L Total Protein 7.2 (5.8-8.3) g/dL Albumin 3.4 (3.0-4.8) g/dL Globulin 3.8 gm/dL Albumin/Globulin Ratio 0.9 L (1.1-1.8) Venous Blood Potassium (3.6-5.2) mmol/L Ur Random Sodium meq/L Ur Random Potassium meq/L Urine Opiates Screen (NEGATIVE) Urine Methadone Screen (NEGATIVE) Ur Barbiturates Screen (NEGATIVE) Ur Phencyclidine Scrn (NEGATIVE) Ur Amphetamines Screen (NEGATIVE) U Benzodiazepines Scrn (NEGATIVE) U Oth Cocaine Metabols (NEGATIVE) U Cannabinoids Screen (NEGATIVE) Alcohol, Quantitative < 10 (0-10) mg/dL Blood Type Blood Type Confirm Antibody Screen Crossmatch BBK History Checked 04/03/18 04/03/18 04/03/18 Range/Units 14:37 14:37 14:37 WBC 48.7 H* D (4.5-11.0) 10^3/uL RBC 2.64 L (3.5-6.1) 10^6/uL Hgb 8.5 L D (14.0-18.0) g/dL Hct 25.5 L (42.0-52.0) % MCV 96.6 (80.0-105.0) fl MCH 32.2 (25.0-35.0) pg MCHC 33.3 (31.0-37.0) g/dl RDW 14.3 (11.5-14.5) % Plt Count 217 (120.0-450.0) 10^3/uL MPV 10.7 (7.0-11.0) fl Neut % (Auto) TEST NOT PERFORMED Lymph % (Auto) TEST NOT PERFORMED Marshall % (Auto) 4.1 (1.0-6.0) % Eos % (Auto) 0.0 L (1.5-5.0) % Baso % (Auto) 0.1 (0.0-3.0) % Lymph # (Auto) TEST NOT PERFORMED Marshall # (Auto) TEST NOT PERFORMED Eos # (Auto) TEST NOT PERFORMED Baso # (Auto) TEST NOT PERFORMED Absolute Neuts (auto) TEST NOT PERFORMED Neutrophils % (Manual) 90 H (50.0-70.0) % Lymphocytes % (Manual) 5 L (22.0-35.0) % Monocytes % (Manual) 5 (1.0-6.0) % Platelet Evaluation Normal (NORMAL) Large Platelets Present Hypochromasia Slight PT 13.3 H (9.4-12.5) SECONDS INR 1.20 APTT 26.8 L (26.9-38.3) Seconds pO2 (30-55) mm/Hg VBG pH (7.32-7.43) VBG pCO2 (40-60) VBG HCO3 (21-28) mmol/l VBG Total CO2 (22-28) mmol.L VBG O2 Sat (Calc) (40-65) % VBG Base Excess (0.0-2.0) mmol/L VBG Potassium (3.6-5.2) mmol/L Glucose (75-110) mg/dl Lactate (0.7-2.1) mmol/L FiO2 % Sodium (132-148) mmol/L Potassium (3.6-5.0) mmol/L Chloride (98-107) mmol/L Carbon Dioxide (21-33) mmol/L Anion Gap (10-20) BUN (7-21) mg/dL Creatinine (0.8-1.5) mg/dl Est GFR ( Amer) Est GFR (Non-Af Amer) Random Glucose (70-110) mg/dL Serum Osmolality (272-300) mosm/kg Calcium (8.4-10.5) mg/dL Phosphorus (2.5-4.5) mg/dL Magnesium (1.7-2.2) mg/dL Total Bilirubin (0.2-1.3) mg/dL AST (17-59) U/L ALT (7-56) U/L Alkaline Phosphatase (38-126) U/L Total Protein (5.8-8.3) g/dL Albumin (3.0-4.8) g/dL Globulin gm/dL Albumin/Globulin Ratio (1.1-1.8) Venous Blood Potassium (3.6-5.2) mmol/L Ur Random Sodium meq/L Ur Random Potassium meq/L Urine Opiates Screen (NEGATIVE) Urine Methadone Screen (NEGATIVE) Ur Barbiturates Screen (NEGATIVE) Ur Phencyclidine Scrn (NEGATIVE) Ur Amphetamines Screen (NEGATIVE) U Benzodiazepines Scrn (NEGATIVE) U Oth Cocaine Metabols (NEGATIVE) U Cannabinoids Screen (NEGATIVE) Alcohol, Quantitative (0-10) mg/dL Blood Type O POSITIVE Blood Type Confirm Antibody Screen Negative Crossmatch See Detail BBK History Checked No verified bt Laboratory Results - last 24 hr 04/03/18 04/03/18 04/03/18 14:37 14:37 14:37 WBC 48.7 H* D RBC 2.64 L Hgb 8.5 L D Hct 25.5 L MCV 96.6 MCH 32.2 MCHC 33.3 RDW 14.3 Plt Count 217 MPV 10.7 Neut % (Auto) TEST NOT PERFORMED Lymph % (Auto) TEST NOT PERFORMED Marshall % (Auto) 4.1 Eos % (Auto) 0.0 L Baso % (Auto) 0.1 Lymph # (Auto) TEST NOT PERFORMED Marshall # (Auto) TEST NOT PERFORMED Eos # (Auto) TEST NOT PERFORMED Baso # (Auto) TEST NOT PERFORMED Absolute Neuts (auto) TEST NOT PERFORMED Neutrophils % (Manual) 90 H Lymphocytes % (Manual) 5 L Monocytes % (Manual) 5 Platelet Evaluation Normal Large Platelets Present Hypochromasia Slight PT 13.3 H INR 1.20 APTT 26.8 L pO2 VBG pH VBG pCO2 VBG HCO3 VBG Total CO2 VBG O2 Sat (Calc) VBG Base Excess VBG Potassium Glucose Lactate FiO2 Sodium Potassium Chloride Carbon Dioxide Anion Gap BUN Creatinine Est GFR ( Amer) Est GFR (Non-Af Amer) Random Glucose Serum Osmolality Calcium Phosphorus Magnesium Total Bilirubin AST ALT Alkaline Phosphatase Total Protein Albumin Globulin Albumin/Globulin Ratio Venous Blood Potassium Ur Random Sodium Ur Random Potassium Urine Opiates Screen Urine Methadone Screen Ur Barbiturates Screen Ur Phencyclidine Scrn Ur Amphetamines Screen U Benzodiazepines Scrn U Oth Cocaine Metabols U Cannabinoids Screen Alcohol, Quantitative Blood Type O POSITIVE Blood Type Confirm Antibody Screen Negative Crossmatch See Detail BBK History Checked No verified bt 04/03/18 04/03/18 04/03/18 14:37 14:37 14:37 WBC RBC Hgb Hct MCV MCH MCHC RDW Plt Count MPV Neut % (Auto) Lymph % (Auto) Marshall % (Auto) Eos % (Auto) Baso % (Auto) Lymph # (Auto) Marshall # (Auto) Eos # (Auto) Baso # (Auto) Absolute Neuts (auto) Neutrophils % (Manual) Lymphocytes % (Manual) Monocytes % (Manual) Platelet Evaluation Large Platelets Hypochromasia PT INR APTT pO2 VBG pH VBG pCO2 VBG HCO3 VBG Total CO2 VBG O2 Sat (Calc) VBG Base Excess VBG Potassium Glucose Lactate FiO2 Sodium 126 L Potassium 4.7 Chloride 88 L Carbon Dioxide 18 L Anion Gap 25 H BUN 45 H Creatinine 2.2 H Est GFR ( Amer) 37 Est GFR (Non-Af Amer) 30 Random Glucose 150 H Serum Osmolality 279 Calcium 8.7 Phosphorus Magnesium 2.2 Total Bilirubin 2.3 H AST 78 H D ALT 22 Alkaline Phosphatase 131 H Total Protein 7.2 Albumin 3.4 Globulin 3.8 Albumin/Globulin Ratio 0.9 L Venous Blood Potassium Ur Random Sodium Ur Random Potassium Urine Opiates Screen Urine Methadone Screen Ur Barbiturates Screen Ur Phencyclidine Scrn Ur Amphetamines Screen U Benzodiazepines Scrn U Oth Cocaine Metabols U Cannabinoids Screen Alcohol, Quantitative < 10 Blood Type Blood Type Confirm Antibody Screen Crossmatch BBK History Checked 04/03/18 04/04/18 04/04/18 15:07 05:30 05:30 WBC 26.9 H* D RBC 3.21 L Hgb 9.8 L Hct 29.0 L MCV 90.3 D MCH 30.5 MCHC 33.8 RDW 15.2 H Plt Count 151 MPV 10.4 Neut % (Auto) 89.9 H Lymph % (Auto) 5.9 L Marshall % (Auto) 4.1 Eos % (Auto) 0.1 L Baso % (Auto) 0.0 Lymph # (Auto) 1.6 Marshall # (Auto) 1.1 H Eos # (Auto) 0.0 Baso # (Auto) 0.01 Absolute Neuts (auto) 24.19 H Neutrophils % (Manual) Lymphocytes % (Manual) Monocytes % (Manual) Platelet Evaluation Large Platelets Hypochromasia PT INR APTT pO2 VBG pH VBG pCO2 VBG HCO3 VBG Total CO2 VBG O2 Sat (Calc) VBG Base Excess VBG Potassium Glucose Lactate FiO2 Sodium 131 L Potassium 3.6 Chloride 96 L Carbon Dioxide 26 Anion Gap 13 BUN 46 H Creatinine 2.0 H Est GFR ( Amer) 41 Est GFR (Non-Af Amer) 34 Random Glucose 95 Serum Osmolality Calcium 7.9 L Phosphorus 4.8 H Magnesium 2.2 Total Bilirubin 3.3 H AST 47 ALT 20 Alkaline Phosphatase 112 Total Protein 6.0 Albumin 2.7 L Globulin 3.2 Albumin/Globulin Ratio 0.8 L Venous Blood Potassium Ur Random Sodium Ur Random Potassium Urine Opiates Screen Urine Methadone Screen Ur Barbiturates Screen Ur Phencyclidine Scrn Ur Amphetamines Screen U Benzodiazepines Scrn U Oth Cocaine Metabols U Cannabinoids Screen Alcohol, Quantitative Blood Type Blood Type Confirm O POSITIVE Antibody Screen Crossmatch BBK History Checked 04/04/18 04/04/18 04/04/18 07:10 08:00 09:54 WBC RBC Hgb Hct MCV MCH MCHC RDW Plt Count MPV Neut % (Auto) Lymph % (Auto) Marshall % (Auto) Eos % (Auto) Baso % (Auto) Lymph # (Auto) Marshall # (Auto) Eos # (Auto) Baso # (Auto) Absolute Neuts (auto) Neutrophils % (Manual) Lymphocytes % (Manual) Monocytes % (Manual) Platelet Evaluation Large Platelets Hypochromasia PT 12.8 H INR 1.13 APTT 27.4 pO2 26 L VBG pH 7.34 VBG pCO2 50.0 VBG HCO3 27.0 VBG Total CO2 28.5 H VBG O2 Sat (Calc) 53.1 VBG Base Excess 0.5 VBG Potassium 4.1 Glucose 103 Lactate 1.1 FiO2 21.0 Sodium 132.0 Potassium Chloride 100.0 Carbon Dioxide Anion Gap BUN Creatinine Est GFR ( Amer) Est GFR (Non-Af Amer) Random Glucose Serum Osmolality Calcium Phosphorus Magnesium Total Bilirubin AST ALT Alkaline Phosphatase Total Protein Albumin Globulin Albumin/Globulin Ratio Venous Blood Potassium 4.1 Ur Random Sodium 20 Ur Random Potassium 73.2 Urine Opiates Screen Negative Urine Methadone Screen Negative Ur Barbiturates Screen Negative Ur Phencyclidine Scrn Negative Ur Amphetamines Screen Negative U Benzodiazepines Scrn Negative U Oth Cocaine Metabols Negative U Cannabinoids Screen Negative Alcohol, Quantitative Blood Type Blood Type Confirm Antibody Screen Crossmatch BBK History Checked Radiology Impressions: Radiology Impressions Chest X-Ray 04/03/18 14:24 IMPRESSION: Right upper lobe mass described in greater detail above. Recommendation: Follow-up CT scan of the thorax. Communication of results: I discussed the findings and follow-up recommendations with the attending physician in the emergency department Dr. Chisholm. Abdomen/Pelvis CT 04/03/18 15:15 IMPRESSION: There is a large amount of dense ascites consistent with hemoperitoneum. There is also a more discrete hematoma in the mesentery located at the level of the iliac crests anteriorly. This hematoma measures 5.8 x 7.2 cm. The etiology of this hemorrhage is uncertain. There is no evidence of free air to suggest bowel perforation. Chest CT 04/03/18 18:01 IMPRESSION: Large right suprahilar mass measuring roughly 6.3 x 7.8 centimeters, possibly intra lung parenchymal or in the mediastinum. Additional infiltrate in the right lower lobe. Abdomen Ultrasound 04/03/18 18:02 IMPRESSION: Hypoechoic lesion in the right lobe of the liver. Mass in the lower abdomen as seen on CT. Chest X-Ray 04/04/18 07:00 IMPRESSION: There is a large 6 x 10 cm mass in the right upper lobe adjacent to the mediastinum. This is unchanged. There is deviation of the trachea to the left EKG/Cardiology Studies: Cardiology / EKG Studies 04/03/18 14:23 ELECTROCARDIOGRAM Stat Comment: Reason For Exam: anemia Review of Systems - Review of Systems Review of Systems: per HPI Critical Care Progress Note - Nutrition Nutrition: Nutrition Category Date Time Status NPO Diet [DIET] Diets 04/03/18 Dinner Ordered Assessment/Plan - Assessment and Plan (Free Text) Assessment: 63 y/o M with PMHx of heavy ETOH abuse, heavy tobacco use admitted to ICU for suspected hemorrhagic shock causing hemoperitoneum Plan: Neuro: ETOH Withdrawal AxO x 3 Somnolent/lethargic continue banana bag @ 100mls/hr continue CIWA protocol continue ativan 1mgQ2H prn continue seizure/aspiration precautions f/u echo Cardiovascular: s/p 3u pRBC Hgb increased from 8.5 to 9.8 Maintain MAP >65 Pulm: New R sided mediastinal mass Will require outpatient workup, with possible endobronchial biopsy Saturating well on room air supplement O2 prn GI: Hemoperitoneum -CT Abdomen: There is a large amount of dense ascites consistent with hemoperitoneum. There is also a more discrete hematoma in the mesentery located at the level of the iliac crests anteriorly. This hematoma measures 5.8 x 7.2 cm. The etiology of this hemorrhage is uncertain. There is no evidence of free air to suggest bowel perforation. continue protonix drip - f/u surgery recs /Renal: JANES likely pre-renal continue IVF @ 100mls/hr with multivitamins, thiamine, folic acid Heme: s/p 3u pRBC f/u surgery recs for hemoperitoneum Not actively bleeding currently. BP wnl Will f/u serial CBC in pm ID: f/u pancultures continue empiric zosyn ID following DVT/GI Ppx: SCD/protonix drip Case seen, examined and discussed with attending physician, Dr. Aura Vázquez PGY1 <Wesley Chavarria - Last Filed: 04/04/18 12:40> CCU Objective - Vital Signs / Intake & Output Intake and Output (Last 8hrs): Intake & Output 04/03/18 04/04/18 04/04/18 22:59 06:59 14:59 Intake Total 425 761 Balance 425 761 Weight 133 lb 9.6 oz 128 lb 14.4 oz Intake: Blood Product 325 611 Apheresis Rbc Cp2d As3 Lr 286 2nd Unit [id number] Red Blood Cells Cpd As1 0 325 Lr Unit [id number] Red Blood Cells Cpd As1 325 Lr Unit [id number] Other 100 150 Apheresis Rbc Cp2d As3 Lr 100 2nd Unit [id number] Red Blood Cells Cpd As1 50 Lr Unit [id number] Red Blood Cells Cpd As1 100 Lr Unit [id number] - Medications Active Medications: Active Medications Generic Name Dose Route Start Last Admin Trade Name Freq PRN Reason Stop Dose Admin Pantoprazole Sodium 40 mg in 100 mls @ 20 mls/hr 04/03/18 16:30 04/04/18 09:52 Protonix 40mg Ivpb IVPB 20 mls/hr .Q5H ODALIS Administration Piperacillin Sod/Tazobactam Sod 100 mls @ 25 mls/hr 04/03/18 23:30 04/04/18 07:00 Zosyn 3.375 In Ns 100ml IVPB 04/10/18 23:31 25 mls/hr Q8 ODALIS Administration Protocol Multivitamins/Vitamin C 10 ml/ 1,011.2 mls @ 100 mls/hr 04/04/18 10:01 04/04/18 11:28 Thiamine HCl 100 mg/ Folic IV 04/04/18 20:07 100 mls/hr Acid 1 mg/ Sodium Chloride .Q10H7M ONE Administration Lorazepam 2 mg 04/04/18 08:00 04/04/18 08:17 Ativan IVP 2 mg Q4 ODALIS Administration Protocol Lorazepam 1 mg 04/04/18 07:21 04/04/18 11:53 Ativan IVP 1 mg Q2H PRN Administration Symptoms of alcohol withdrawl Protocol - Patient Studies Lab Studies: Lab Studies 04/04/18 04/04/18 04/04/18 Range/Units 09:54 08:00 07:10 WBC (4.5-11.0) 10^3/uL RBC (3.5-6.1) 10^6/uL Hgb (14.0-18.0) g/dL Hct (42.0-52.0) % MCV (80.0-105.0) fl MCH (25.0-35.0) pg MCHC (31.0-37.0) g/dl RDW (11.5-14.5) % Plt Count (120.0-450.0) 10^3/uL MPV (7.0-11.0) fl Neut % (Auto) Lymph % (Auto) Marshall % (Auto) (1.0-6.0) % Eos % (Auto) (1.5-5.0) % Baso % (Auto) (0.0-3.0) % Lymph # (Auto) Marshall # (Auto) Eos # (Auto) Baso # (Auto) Absolute Neuts (auto) Neutrophils % (Manual) (50.0-70.0) % Lymphocytes % (Manual) (22.0-35.0) % Monocytes % (Manual) (1.0-6.0) % Platelet Evaluation (NORMAL) Large Platelets Hypochromasia PT 12.8 H (9.4-12.5) SECONDS INR 1.13 APTT 27.4 (26.9-38.3) Seconds pO2 26 L (30-55) mm/Hg VBG pH 7.34 (7.32-7.43) VBG pCO2 50.0 (40-60) VBG HCO3 27.0 (21-28) mmol/l VBG Total CO2 28.5 H (22-28) mmol.L VBG O2 Sat (Calc) 53.1 (40-65) % VBG Base Excess 0.5 (0.0-2.0) mmol/L VBG Potassium 4.1 (3.6-5.2) mmol/L Glucose 103 (75-110) mg/dl Lactate 1.1 (0.7-2.1) mmol/L FiO2 21.0 % Sodium 132.0 (132-148) mmol/L Potassium (3.6-5.0) mmol/L Chloride 100.0 (98-107) mmol/L Carbon Dioxide (21-33) mmol/L Anion Gap (10-20) BUN (7-21) mg/dL Creatinine (0.8-1.5) mg/dl Est GFR ( Amer) Est GFR (Non-Af Amer) Random Glucose (70-110) mg/dL Serum Osmolality (272-300) mosm/kg Calcium (8.4-10.5) mg/dL Phosphorus (2.5-4.5) mg/dL Magnesium (1.7-2.2) mg/dL Total Bilirubin (0.2-1.3) mg/dL AST (17-59) U/L ALT (7-56) U/L Alkaline Phosphatase (38-126) U/L Total Protein (5.8-8.3) g/dL Albumin (3.0-4.8) g/dL Globulin gm/dL Albumin/Globulin Ratio (1.1-1.8) Venous Blood Potassium 4.1 (3.6-5.2) mmol/L Ur Random Sodium 20 meq/L Ur Random Potassium 73.2 meq/L Urine Opiates Screen Negative (NEGATIVE) Urine Methadone Screen Negative (NEGATIVE) Ur Barbiturates Screen Negative (NEGATIVE) Ur Phencyclidine Scrn Negative (NEGATIVE) Ur Amphetamines Screen Negative (NEGATIVE) U Benzodiazepines Scrn Negative (NEGATIVE) U Oth Cocaine Metabols Negative (NEGATIVE) U Cannabinoids Screen Negative (NEGATIVE) Alcohol, Quantitative (0-10) mg/dL Blood Type Blood Type Confirm Antibody Screen Crossmatch BBK History Checked 04/04/18 04/04/18 04/03/18 Range/Units 05:30 05:30 15:07 WBC 26.9 H* D (4.5-11.0) 10^3/uL RBC 3.21 L (3.5-6.1) 10^6/uL Hgb 9.8 L (14.0-18.0) g/dL Hct 29.0 L (42.0-52.0) % MCV 90.3 D (80.0-105.0) fl MCH 30.5 (25.0-35.0) pg MCHC 33.8 (31.0-37.0) g/dl RDW 15.2 H (11.5-14.5) % Plt Count 151 (120.0-450.0) 10^3/uL MPV 10.4 (7.0-11.0) fl Neut % (Auto) 89.9 H Lymph % (Auto) 5.9 L Marshall % (Auto) 4.1 (1.0-6.0) % Eos % (Auto) 0.1 L (1.5-5.0) % Baso % (Auto) 0.0 (0.0-3.0) % Lymph # (Auto) 1.6 Marshall # (Auto) 1.1 H Eos # (Auto) 0.0 Baso # (Auto) 0.01 Absolute Neuts (auto) 24.19 H Neutrophils % (Manual) (50.0-70.0) % Lymphocytes % (Manual) (22.0-35.0) % Monocytes % (Manual) (1.0-6.0) % Platelet Evaluation (NORMAL) Large Platelets Hypochromasia PT (9.4-12.5) SECONDS INR APTT (26.9-38.3) Seconds pO2 (30-55) mm/Hg VBG pH (7.32-7.43) VBG pCO2 (40-60) VBG HCO3 (21-28) mmol/l VBG Total CO2 (22-28) mmol.L VBG O2 Sat (Calc) (40-65) % VBG Base Excess (0.0-2.0) mmol/L VBG Potassium (3.6-5.2) mmol/L Glucose (75-110) mg/dl Lactate (0.7-2.1) mmol/L FiO2 % Sodium 131 L (132-148) mmol/L Potassium 3.6 (3.6-5.0) mmol/L Chloride 96 L (98-107) mmol/L Carbon Dioxide 26 (21-33) mmol/L Anion Gap 13 (10-20) BUN 46 H (7-21) mg/dL Creatinine 2.0 H (0.8-1.5) mg/dl Est GFR ( Amer) 41 Est GFR (Non-Af Amer) 34 Random Glucose 95 (70-110) mg/dL Serum Osmolality (272-300) mosm/kg Calcium 7.9 L (8.4-10.5) mg/dL Phosphorus 4.8 H (2.5-4.5) mg/dL Magnesium 2.2 (1.7-2.2) mg/dL Total Bilirubin 3.3 H (0.2-1.3) mg/dL AST 47 (17-59) U/L ALT 20 (7-56) U/L Alkaline Phosphatase 112 (38-126) U/L Total Protein 6.0 (5.8-8.3) g/dL Albumin 2.7 L (3.0-4.8) g/dL Globulin 3.2 gm/dL Albumin/Globulin Ratio 0.8 L (1.1-1.8) Venous Blood Potassium (3.6-5.2) mmol/L Ur Random Sodium meq/L Ur Random Potassium meq/L Urine Opiates Screen (NEGATIVE) Urine Methadone Screen (NEGATIVE) Ur Barbiturates Screen (NEGATIVE) Ur Phencyclidine Scrn (NEGATIVE) Ur Amphetamines Screen (NEGATIVE) U Benzodiazepines Scrn (NEGATIVE) U Oth Cocaine Metabols (NEGATIVE) U Cannabinoids Screen (NEGATIVE) Alcohol, Quantitative (0-10) mg/dL Blood Type Blood Type Confirm O POSITIVE Antibody Screen Crossmatch BBK History Checked 02/04/03/18 04/03/18 Range/Units 14:37 14:37 14:37 WBC (4.5-11.0) 10^3/uL RBC (3.5-6.1) 10^6/uL Hgb (14.0-18.0) g/dL Hct (42.0-52.0) % MCV (80.0-105.0) fl MCH (25.0-35.0) pg MCHC (31.0-37.0) g/dl RDW (11.5-14.5) % Plt Count (120.0-450.0) 10^3/uL MPV (7.0-11.0) fl Neut % (Auto) Lymph % (Auto) Marshall % (Auto) (1.0-6.0) % Eos % (Auto) (1.5-5.0) % Baso % (Auto) (0.0-3.0) % Lymph # (Auto) Marshall # (Auto) Eos # (Auto) Baso # (Auto) Absolute Neuts (auto) Neutrophils % (Manual) (50.0-70.0) % Lymphocytes % (Manual) (22.0-35.0) % Monocytes % (Manual) (1.0-6.0) % Platelet Evaluation (NORMAL) Large Platelets Hypochromasia PT (9.4-12.5) SECONDS INR APTT (26.9-38.3) Seconds pO2 (30-55) mm/Hg VBG pH (7.32-7.43) VBG pCO2 (40-60) VBG HCO3 (21-28) mmol/l VBG Total CO2 (22-28) mmol.L VBG O2 Sat (Calc) (40-65) % VBG Base Excess (0.0-2.0) mmol/L VBG Potassium (3.6-5.2) mmol/L Glucose (75-110) mg/dl Lactate (0.7-2.1) mmol/L FiO2 % Sodium 126 L (132-148) mmol/L Potassium 4.7 (3.6-5.0) mmol/L Chloride 88 L (98-107) mmol/L Carbon Dioxide 18 L (21-33) mmol/L Anion Gap 25 H (10-20) BUN 45 H (7-21) mg/dL Creatinine 2.2 H (0.8-1.5) mg/dl Est GFR ( Amer) 37 Est GFR (Non-Af Amer) 30 Random Glucose 150 H (70-110) mg/dL Serum Osmolality 279 (272-300) mosm/kg Calcium 8.7 (8.4-10.5) mg/dL Phosphorus (2.5-4.5) mg/dL Magnesium 2.2 (1.7-2.2) mg/dL Total Bilirubin 2.3 H (0.2-1.3) mg/dL AST 78 H D (17-59) U/L ALT 22 (7-56) U/L Alkaline Phosphatase 131 H (38-126) U/L Total Protein 7.2 (5.8-8.3) g/dL Albumin 3.4 (3.0-4.8) g/dL Globulin 3.8 gm/dL Albumin/Globulin Ratio 0.9 L (1.1-1.8) Venous Blood Potassium (3.6-5.2) mmol/L Ur Random Sodium meq/L Ur Random Potassium meq/L Urine Opiates Screen (NEGATIVE) Urine Methadone Screen (NEGATIVE) Ur Barbiturates Screen (NEGATIVE) Ur Phencyclidine Scrn (NEGATIVE) Ur Amphetamines Screen (NEGATIVE) U Benzodiazepines Scrn (NEGATIVE) U Oth Cocaine Metabols (NEGATIVE) U Cannabinoids Screen (NEGATIVE) Alcohol, Quantitative < 10 (0-10) mg/dL Blood Type Blood Type Confirm Antibody Screen Crossmatch BBK History Checked 04/03/18 04/03/18 04/03/18 Range/Units 14:37 14:37 14:37 WBC 48.7 H* D (4.5-11.0) 10^3/uL RBC 2.64 L (3.5-6.1) 10^6/uL Hgb 8.5 L D (14.0-18.0) g/dL Hct 25.5 L (42.0-52.0) % MCV 96.6 (80.0-105.0) fl MCH 32.2 (25.0-35.0) pg MCHC 33.3 (31.0-37.0) g/dl RDW 14.3 (11.5-14.5) % Plt Count 217 (120.0-450.0) 10^3/uL MPV 10.7 (7.0-11.0) fl Neut % (Auto) TEST NOT PERFORMED Lymph % (Auto) TEST NOT PERFORMED Marshall % (Auto) 4.1 (1.0-6.0) % Eos % (Auto) 0.0 L (1.5-5.0) % Baso % (Auto) 0.1 (0.0-3.0) % Lymph # (Auto) TEST NOT PERFORMED Marshall # (Auto) TEST NOT PERFORMED Eos # (Auto) TEST NOT PERFORMED Baso # (Auto) TEST NOT PERFORMED Absolute Neuts (auto) TEST NOT PERFORMED Neutrophils % (Manual) 90 H (50.0-70.0) % Lymphocytes % (Manual) 5 L (22.0-35.0) % Monocytes % (Manual) 5 (1.0-6.0) % Platelet Evaluation Normal (NORMAL) Large Platelets Present Hypochromasia Slight PT 13.3 H (9.4-12.5) SECONDS INR 1.20 APTT 26.8 L (26.9-38.3) Seconds pO2 (30-55) mm/Hg VBG pH (7.32-7.43) VBG pCO2 (40-60) VBG HCO3 (21-28) mmol/l VBG Total CO2 (22-28) mmol.L VBG O2 Sat (Calc) (40-65) % VBG Base Excess (0.0-2.0) mmol/L VBG Potassium (3.6-5.2) mmol/L Glucose (75-110) mg/dl Lactate (0.7-2.1) mmol/L FiO2 % Sodium (132-148) mmol/L Potassium (3.6-5.0) mmol/L Chloride (98-107) mmol/L Carbon Dioxide (21-33) mmol/L Anion Gap (10-20) BUN (7-21) mg/dL Creatinine (0.8-1.5) mg/dl Est GFR ( Amer) Est GFR (Non-Af Amer) Random Glucose (70-110) mg/dL Serum Osmolality (272-300) mosm/kg Calcium (8.4-10.5) mg/dL Phosphorus (2.5-4.5) mg/dL Magnesium (1.7-2.2) mg/dL Total Bilirubin (0.2-1.3) mg/dL AST (17-59) U/L ALT (7-56) U/L Alkaline Phosphatase (38-126) U/L Total Protein (5.8-8.3) g/dL Albumin (3.0-4.8) g/dL Globulin gm/dL Albumin/Globulin Ratio (1.1-1.8) Venous Blood Potassium (3.6-5.2) mmol/L Ur Random Sodium meq/L Ur Random Potassium meq/L Urine Opiates Screen (NEGATIVE) Urine Methadone Screen (NEGATIVE) Ur Barbiturates Screen (NEGATIVE) Ur Phencyclidine Scrn (NEGATIVE) Ur Amphetamines Screen (NEGATIVE) U Benzodiazepines Scrn (NEGATIVE) U Oth Cocaine Metabols (NEGATIVE) U Cannabinoids Screen (NEGATIVE) Alcohol, Quantitative (0-10) mg/dL Blood Type O POSITIVE Blood Type Confirm Antibody Screen Negative Crossmatch See Detail BBK History Checked No verified bt Laboratory Results - last 24 hr 04/03/18 04/03/18 04/03/18 14:37 14:37 14:37 WBC 48.7 H* D RBC 2.64 L Hgb 8.5 L D Hct 25.5 L MCV 96.6 MCH 32.2 MCHC 33.3 RDW 14.3 Plt Count 217 MPV 10.7 Neut % (Auto) TEST NOT PERFORMED Lymph % (Auto) TEST NOT PERFORMED Marshall % (Auto) 4.1 Eos % (Auto) 0.0 L Baso % (Auto) 0.1 Lymph # (Auto) TEST NOT PERFORMED Marshall # (Auto) TEST NOT PERFORMED Eos # (Auto) TEST NOT PERFORMED Baso # (Auto) TEST NOT PERFORMED Absolute Neuts (auto) TEST NOT PERFORMED Neutrophils % (Manual) 90 H Lymphocytes % (Manual) 5 L Monocytes % (Manual) 5 Platelet Evaluation Normal Large Platelets Present Hypochromasia Slight PT 13.3 H INR 1.20 APTT 26.8 L pO2 VBG pH VBG pCO2 VBG HCO3 VBG Total CO2 VBG O2 Sat (Calc) VBG Base Excess VBG Potassium Glucose Lactate FiO2 Sodium Potassium Chloride Carbon Dioxide Anion Gap BUN Creatinine Est GFR ( Amer) Est GFR (Non-Af Amer) Random Glucose Serum Osmolality Calcium Phosphorus Magnesium Total Bilirubin AST ALT Alkaline Phosphatase Total Protein Albumin Globulin Albumin/Globulin Ratio Venous Blood Potassium Ur Random Sodium Ur Random Potassium Urine Opiates Screen Urine Methadone Screen Ur Barbiturates Screen Ur Phencyclidine Scrn Ur Amphetamines Screen U Benzodiazepines Scrn U Oth Cocaine Metabols U Cannabinoids Screen Alcohol, Quantitative Blood Type O POSITIVE Blood Type Confirm Antibody Screen Negative Crossmatch See Detail BBK History Checked No verified bt 04/03/18 04/03/18 04/03/18 14:37 14:37 14:37 WBC RBC Hgb Hct MCV MCH MCHC RDW Plt Count MPV Neut % (Auto) Lymph % (Auto) Marshall % (Auto) Eos % (Auto) Baso % (Auto) Lymph # (Auto) Marshall # (Auto) Eos # (Auto) Baso # (Auto) Absolute Neuts (auto) Neutrophils % (Manual) Lymphocytes % (Manual) Monocytes % (Manual) Platelet Evaluation Large Platelets Hypochromasia PT INR APTT pO2 VBG pH VBG pCO2 VBG HCO3 VBG Total CO2 VBG O2 Sat (Calc) VBG Base Excess VBG Potassium Glucose Lactate FiO2 Sodium 126 L Potassium 4.7 Chloride 88 L Carbon Dioxide 18 L Anion Gap 25 H BUN 45 H Creatinine 2.2 H Est GFR ( Amer) 37 Est GFR (Non-Af Amer) 30 Random Glucose 150 H Serum Osmolality 279 Calcium 8.7 Phosphorus Magnesium 2.2 Total Bilirubin 2.3 H AST 78 H D ALT 22 Alkaline Phosphatase 131 H Total Protein 7.2 Albumin 3.4 Globulin 3.8 Albumin/Globulin Ratio 0.9 L Venous Blood Potassium Ur Random Sodium Ur Random Potassium Urine Opiates Screen Urine Methadone Screen Ur Barbiturates Screen Ur Phencyclidine Scrn Ur Amphetamines Screen U Benzodiazepines Scrn U Oth Cocaine Metabols U Cannabinoids Screen Alcohol, Quantitative < 10 Blood Type Blood Type Confirm Antibody Screen Crossmatch BBK History Checked 04/03/18 04/04/18 04/04/18 15:07 05:30 05:30 WBC 26.9 H* D RBC 3.21 L Hgb 9.8 L Hct 29.0 L MCV 90.3 D MCH 30.5 MCHC 33.8 RDW 15.2 H Plt Count 151 MPV 10.4 Neut % (Auto) 89.9 H Lymph % (Auto) 5.9 L Marshall % (Auto) 4.1 Eos % (Auto) 0.1 L Baso % (Auto) 0.0 Lymph # (Auto) 1.6 Marshall # (Auto) 1.1 H Eos # (Auto) 0.0 Baso # (Auto) 0.01 Absolute Neuts (auto) 24.19 H Neutrophils % (Manual) Lymphocytes % (Manual) Monocytes % (Manual) Platelet Evaluation Large Platelets Hypochromasia PT INR APTT pO2 VBG pH VBG pCO2 VBG HCO3 VBG Total CO2 VBG O2 Sat (Calc) VBG Base Excess VBG Potassium Glucose Lactate FiO2 Sodium 131 L Potassium 3.6 Chloride 96 L Carbon Dioxide 26 Anion Gap 13 BUN 46 H Creatinine 2.0 H Est GFR ( Amer) 41 Est GFR (Non-Af Amer) 34 Random Glucose 95 Serum Osmolality Calcium 7.9 L Phosphorus 4.8 H Magnesium 2.2 Total Bilirubin 3.3 H AST 47 ALT 20 Alkaline Phosphatase 112 Total Protein 6.0 Albumin 2.7 L Globulin 3.2 Albumin/Globulin Ratio 0.8 L Venous Blood Potassium Ur Random Sodium Ur Random Potassium Urine Opiates Screen Urine Methadone Screen Ur Barbiturates Screen Ur Phencyclidine Scrn Ur Amphetamines Screen U Benzodiazepines Scrn U Oth Cocaine Metabols U Cannabinoids Screen Alcohol, Quantitative Blood Type Blood Type Confirm O POSITIVE Antibody Screen Crossmatch BBK History Checked 04/04/18 04/04/18 04/04/18 07:10 08:00 09:54 WBC RBC Hgb Hct MCV MCH MCHC RDW Plt Count MPV Neut % (Auto) Lymph % (Auto) Marshall % (Auto) Eos % (Auto) Baso % (Auto) Lymph # (Auto) Marshall # (Auto) Eos # (Auto) Baso # (Auto) Absolute Neuts (auto) Neutrophils % (Manual) Lymphocytes % (Manual) Monocytes % (Manual) Platelet Evaluation Large Platelets Hypochromasia PT 12.8 H INR 1.13 APTT 27.4 pO2 26 L VBG pH 7.34 VBG pCO2 50.0 VBG HCO3 27.0 VBG Total CO2 28.5 H VBG O2 Sat (Calc) 53.1 VBG Base Excess 0.5 VBG Potassium 4.1 Glucose 103 Lactate 1.1 FiO2 21.0 Sodium 132.0 Potassium Chloride 100.0 Carbon Dioxide Anion Gap BUN Creatinine Est GFR ( Amer) Est GFR (Non-Af Amer) Random Glucose Serum Osmolality Calcium Phosphorus Magnesium Total Bilirubin AST ALT Alkaline Phosphatase Total Protein Albumin Globulin Albumin/Globulin Ratio Venous Blood Potassium 4.1 Ur Random Sodium 20 Ur Random Potassium 73.2 Urine Opiates Screen Negative Urine Methadone Screen Negative Ur Barbiturates Screen Negative Ur Phencyclidine Scrn Negative Ur Amphetamines Screen Negative U Benzodiazepines Scrn Negative U Oth Cocaine Metabols Negative U Cannabinoids Screen Negative Alcohol, Quantitative Blood Type Blood Type Confirm Antibody Screen Crossmatch BBK History Checked Radiology Impressions: Radiology Impressions Chest X-Ray 04/03/18 14:24 IMPRESSION: Right upper lobe mass described in greater detail above. Recommendation: Follow-up CT scan of the thorax. Communication of results: I discussed the findings and follow-up recommendations with the attending physician in the emergency department Dr. Chisholm. Abdomen/Pelvis CT 04/03/18 15:15 IMPRESSION: There is a large amount of dense ascites consistent with hemoperitoneum. There is also a more discrete hematoma in the mesentery located at the level of the iliac crests anteriorly. This hematoma measures 5.8 x 7.2 cm. The etiology of this hemorrhage is uncertain. There is no evidence of free air to suggest bowel perforation. Chest CT 04/03/18 18:01 IMPRESSION: Large right suprahilar mass measuring roughly 6.3 x 7.8 centimeters, possibly intra lung parenchymal or in the mediastinum. Additional infiltrate in the right lower lobe. Abdomen Ultrasound 04/03/18 18:02 IMPRESSION: Hypoechoic lesion in the right lobe of the liver. Mass in the lower abdomen as seen on CT. Chest X-Ray 04/04/18 07:00 IMPRESSION: There is a large 6 x 10 cm mass in the right upper lobe adjacent to the mediastinum. This is unchanged. There is deviation of the trachea to the left EKG/Cardiology Studies: Cardiology / EKG Studies 04/03/18 14:23 ELECTROCARDIOGRAM Stat Comment: Reason For Exam: anemia Critical Care Progress Note - Nutrition Nutrition: Nutrition Category Date Time Status NPO Diet [DIET] Diets 04/03/18 Dinner Ordered Assessment/Plan - Assessment and Plan (Free Text) Plan: Patient seen and examined on rounds, with resident, agree with note with following additions/exceptions: Patient is 63yo male with PMHx of etoh abuse, heavy smoking, admitted with anemia, hemoperitoneum. Surgery consulted, no acute intervention at this time Received 3u PRBC yesterday Currently afebrile HD stable, comfortable in NAD, somnolent, s/p Ativan IV Labs, imaging, chart reviewed CT chest with lung vs mediastinal mass which will need workup CT A/P with hemoperitoneum, and mesenteric hematoma, ??trauma hx Cr improving s/p IVF EtOH abuse Hx Smoking Anemia Leukocytosis Hemoperitoneum Mesenteric Hematoma Renal failure Hyponatremia Recommend: - supp o2 as needed, duonebs PRN, Pulmicort BID, - panculture, UCx, BCx, check procal, UA, CXR - ID eval - IVF, NS with thiamine, folic acid, MVT - CIWA protocol, Ativan PRN - Surgery follow up - ECHO - NPO - PPI - renal sono - GI ppx - DVT ppx, SCDs
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
[2018-04-04 15:58] LABS: BASO # 0.02 K/mm3 (0.0-2.0); BASO % 0.1 % (0.0-3.0); EOS % 0.1 % (1.5-5.0); HEMOGLOBIN 9.9 g/dL (14.0-18.0); LYMPH # 1.9 (1.2-3.4); LYMPH % 5.9 % (22.0-35.0); MEAN CELL VOLUME 91.5 fl (80.0-105.0); MEAN CORPUSCULAR HEMOGLOBIN 31.2 pg (25.0-35.0); MEAN CORPUSCULAR HGB CONC 34.1 g/dl (31.0-37.0); MEAN PLATELET VOLUME 10.3 fl (7.0-11.0); MONO # 0.9 (0.1-0.6); MONO % 2.9 % (1.0-6.0); RBC 3.17 10^6/uL (3.5-6.1); RED CELL DISTRIBUTION WIDTH 15.7 % (11.5-14.5)
[2018-04-04 16:00] LABS: WHITE BLOOD COUNT 32.3 10^3/uL (4.5-11.0)
--- NOTE | 2018-04-04 18:10 | CARD ---
APPROVED REPORT Date of service: 04/04/2018 EXAM: Two-dimensional and M-mode echocardiogram with Doppler and color Doppler. INDICATION HEMOPERITONEUM 2D DIMENSIONS Left Atrium (2D)4.0 (1.6-4.0cm)IVSd1.1 (0.7-1.1cm) LVDd3.5 (3.9-5.9cm)PWd1.1 (0.7-1.1cm) LVDs2.5 (2.5-4.0cm)FS (%) 29.7 % LVEF (%)58.0 (>50%) M-Mode DIMENSIONS Aortic Root3.80 (2.2-3.7cm)Aortic Cusp Exc.2.20 (1.5-2.0cm) Aortic Valve AoV Peak Znmldeph643.0cm/Maida Peak GR.7mmHg Mitral Valve MV E Xhprqmgc05.7cm/sMV A Hgdvmtqt25.9cm/sE/A ratio0.8 TDI Lateral E' Peak V9.75cm/sMedial E' Peak V8.09cm/sE/Lateral E'6.5 E/Medial E'7.9 Pulmonary Valve PV Peak Lfnxddxr59.0cm/sPV Peak Grad.2mmHg Tricuspid Valve TR Peak Gijkwrew347eb/sRAP [id number] Peak Gr.29mmHg [id number] LEFT VENTRICLE The left ventricle is normal size. There is normal left ventricular wall thickness. The left ventricular function is normal. The left ventricular ejection fraction is within the normal range. There is normal LV segmental wall motion. Transmitral Doppler flow pattern is Grade I-abnormal relaxation pattern. RIGHT VENTRICLE The right ventricle is normal size. There is normal right ventricular wall thickness. The right ventricular systolic function is normal. ATRIA The left atrium size is normal. The right atrium size is normal. AORTIC VALVE The aortic valve is mildly thickened. There is trace aortic regurgitation. MITRAL VALVE The mitral valve is mildly thickened. Mitral regurgitation is mild. TRICUSPID VALVE There is mild tricuspid regurgitation. There is mild pulmonary hypertension. PULMONIC VALVE The pulmonary valve is normal in structure. There is trace pulmonic valvular regurgitation. GREAT VESSELS The aortic root is mildly enlarged. The IVC is normal in size and collapses >50% with inspiration. PERICARDIAL EFFUSION There is a trace pericardial effusion. <Conclusion> There is normal left ventricular wall thickness. The left ventricular function is normal. The left ventricular ejection fraction is within the normal range. There is normal LV segmental wall motion. Transmitral Doppler flow pattern is Grade I-abnormal relaxation pattern. Mitral regurgitation is mild. There is mild tricuspid regurgitation. There is mild pulmonary hypertension. The aortic root is mildly enlarged.
[2018-04-05 06:28] LABS: ALB/GLOB RATIO 0.8 (1.1-1.8); ALBUMIN 2.5 g/dL (3.0-4.8); CALCIUM 7.9 mg/dL (8.4-10.5)
[2018-04-05 06:45] LABS: BASO # 0.01 K/mm3 (0.0-2.0); EOS % 0.1 % (1.5-5.0); HEMOGLOBIN 9.2 g/dL (14.0-18.0); MEAN CELL VOLUME 92.9 fl (80.0-105.0); MEAN CORPUSCULAR HEMOGLOBIN 31.2 pg (25.0-35.0); MEAN CORPUSCULAR HGB CONC 33.6 g/dl (31.0-37.0); MEAN PLATELET VOLUME 10.4 fl (7.0-11.0); MONO # 1.2 (0.1-0.6); MONO % 3.9 % (1.0-6.0); PLATELET COUNT 150 10^3/uL (120.0-450.0); RBC 2.95 10^6/uL (3.5-6.1); RED CELL DISTRIBUTION WIDTH 16.2 % (11.5-14.5)
[2018-04-05] MEDS: Piperacillin/Tazobact 3.375 gm 100 ML IVPB SCH ×3 (07:05→21:29)
[2018-04-05 07:08] LABS: WHITE BLOOD COUNT 29.3 10^3/uL (4.5-11.0)
[2018-04-05] MEDS ORDERED: Multivitamin (MVI) 10 ML, Thiamine 100 MG, Folic Acid 1 MG in Sodium Chloride 0.9% 1,00... IV ONE (07:15)
[2018-04-05] MEDS: Pantoprazole 40mg/100mL NS 40 MG/100 ML BAG IVPB SCH ×3 (08:30→23:00)
[2018-04-05 09:47] VITALS: O2SAT 100
--- NOTE | 2018-04-05 10:12 | CP.PCM.PN ---
Subjective - Date & Time of Evaluation Date of Evaluation: 04/05/18 Time of Evaluation: 08:00 - Subjective Subjective: General Surgery Pt seen and examined this AM. Pt lethargic and responded to questions with unintelligible grunts at best. Received 1mg ativan at 7AM. Objective - Vital Signs/Intake and Output Vital Signs (last 24 hours): Temp Pulse Resp BP Pulse Ox 97.3 F L 100 H 14 138/88 100 04/04/18 04:02 04/05/18 09:40 04/05/18 09:40 04/05/18 09:00 04/05/18 07:30 Intake and Output: 04/05/18 04/05/18 06:59 18:59 Intake Total 360 Output Total 250 Balance 110 - Medications Medications: Current Medications Pantoprazole Sodium (Protonix 40mg Ivpb) 40 mg in 100 mls @ 20 mls/hr IVPB .Q5H ODALIS Last Admin: 04/05/18 10:03 Dose: 20 mls/hr Piperacillin Sod/Tazobactam Sod (Zosyn 3.375 In Ns 100ml) 100 mls @ 25 mls/hr IVPB Q8 ODALIS; Protocol Stop: 04/10/18 23:31 Last Admin: 04/05/18 07:05 Dose: 25 mls/hr Multivitamins/Vitamin C 10 ml/Thiamine HCl 100 mg/ Folic Acid 1 mg/ Sodium Chloride 1,011.2 mls @ 100 mls/hr IV .Q10H7M ONE Stop: 04/05/18 17:21 Lorazepam (Ativan) 1 mg IVP Q2H PRN; Protocol PRN Reason: Symptoms of alcohol withdrawl Last Admin: 04/05/18 07:05 Dose: 1 mg - Labs Labs: 04/05/18 05:00 04/05/18 05:00 PT 12.8 SECONDS (9.4-12.5) H 04/04/18 07:10 INR 1.13 04/04/18 07:10 APTT 27.4 Seconds (26.9-38.3) 04/04/18 07:10 - Constitutional Appears: Confused, Chronically Ill - Head Exam Head Exam: ATRAUMATIC, NORMOCEPHALIC - Eye Exam Eye Exam: EOMI, Scleral icterus - ENT Exam ENT Exam: Mucous Membranes Dry - Respiratory Exam Respiratory Exam: NORMAL BREATHING PATTERN. absent: Respiratory Distress - Cardiovascular Exam Cardiovascular Exam: Tachycardia (low 100s), +S1, +S2 - GI/Abdominal Exam GI & Abdominal Exam: Distended, Soft, Tenderness (difuse but worse in lower quadrants). absent: Firm, Guarding, Rigid, Rebound - Extremities Exam Extremities Exam: absent: Calf Tenderness, Pedal Edema - Back Exam Back Exam: absent: CVA tenderness (L), CVA tenderness (R) - Neurological Exam Neurological Exam: Altered, Awake - Skin Skin Exam: Dry, Warm Assessment and Plan - Assessment and Plan (Free Text) Assessment: 63yo M with PMHx of ETOH abuse, HTN, and heavy tobacco use. Here with severe anemia, hemoperitoneum, leukocytosis. Plan: -Leukocytosis with some improvement: procal 1.66; Continue IV abx; lara cx pending; appreciate medicine team input and infectious disease input - AMS; etiology EtOH withdrawal vs ativan vs infectious etiology - monitor H&H replete as needed - Serial CMPs, hyponatremia improving, Cr improving - T bili increasing, monitor, Cirrhosis vs Resorbing hemoperitoneum - Continue CIWA protocol - Hypoechoic lesion seen on ultrasound; Hemopertioneum seen on CT ab/pelvis; Large right suprialhilar mass on Chest CT - No surgical intervention warranted at this time D/W Dr. Kevyn Carlin PGY4
--- NOTE | 2018-04-05 11:25 | CP.PCM.PN ---
<Mendoza Duke - Last Filed: 04/05/18 11:35> Subjective - Date & Time of Evaluation Date of Evaluation: 04/05/18 Time of Evaluation: 08:00 - Subjective Subjective: Mendoza Duke DO, PGY-1 Hospitalist Progress Note for Dr. Diaz Patient was seen and examined at bedside this AM. He is still sedated and has be en receiving ativan regularly for withdrawal sx's. Most recent CIWA was 5. He is moving all extremities spontaneously and is able to protect airway. He opens his eyes spontaneously. Objective - Vital Signs/Intake and Output Vital Signs (last 24 hours): Temp Pulse Resp BP Pulse Ox 97.5 F L 101 H 17 129/72 100 04/05/18 04:00 04/05/18 10:20 04/05/18 10:20 04/05/18 10:00 04/05/18 10:20 Intake and Output: 04/05/18 04/05/18 06:59 18:59 Intake Total 360 Output Total 250 Balance 110 - Medications Medications: Current Medications Pantoprazole Sodium (Protonix 40mg Ivpb) 40 mg in 100 mls @ 20 mls/hr IVPB .Q5H ANU Last Admin: 04/05/18 10:03 Dose: 20 mls/hr Piperacillin Sod/Tazobactam Sod (Zosyn 3.375 In Ns 100ml) 100 mls @ 25 mls/hr IVPB Q8 ANU; Protocol Stop: 04/10/18 23:31 Last Admin: 04/05/18 07:05 Dose: 25 mls/hr Multivitamins/Vitamin C 10 ml/Thiamine HCl 100 mg/ Folic Acid 1 mg/ Sodium Chloride 1,011.2 mls @ 100 mls/hr IV .Q10H7M ONE Stop: 04/05/18 17:21 Lorazepam (Ativan) 1 mg IVP Q2H PRN; Protocol PRN Reason: Symptoms of alcohol withdrawl Last Admin: 04/05/18 07:05 Dose: 1 mg - Labs Labs: 04/05/18 05:00 04/05/18 05:00 PT 12.8 SECONDS (9.4-12.5) H 04/04/18 07:10 INR 1.13 04/04/18 07:10 APTT 27.4 Seconds (26.9-38.3) 04/04/18 07:10 - Head Exam Additional comments: Sedated but responds to painful and verbal stimuli - Eye Exam Eye Exam: EOMI, PERRL - ENT Exam ENT Exam: Mucous Membranes Dry Additional comments: Poor oral hygiene. Apparent dried blood is present throughout the pharynx but no distinct mass or ulcer was able to be visualized as patient was clenching his jaw and is non-cooperative with examination. - Neck Exam Neck Exam: absent: Lymphadenopathy, Thyromegaly - Respiratory Exam Respiratory Exam: Rhonchi (coarse breath sounds b/l). absent: Accessory Muscle Use, Chest Wall Tenderness, Wheezes, Respiratory Distress, Stridor - Cardiovascular Exam Cardiovascular Exam: REGULAR RHYTHM, RRR, +S1, +S2. absent: Gallop, Rubs, Murmur - GI/Abdominal Exam GI & Abdominal Exam: Distended. absent: Guarding, Rigid, Rebound - Extremities Exam Extremities Exam: absent: Joint Swelling, Pedal Edema - Neurological Exam Neurological Exam: Alert, Awake, Oriented x3 - Psychiatric Exam Additional comments: sedated but responsive to painful and verbal stimuli - Skin Skin Exam: Dry, Intact, Warm Assessment and Plan - Assessment and Plan (Free Text) Assessment: 63 yo M with PMH of tobacco, EtOH abuse (12-14 cans of beer daily), and HTN presented to ED with generalized weakness found to have hemoperitoneum and peritoneal hematoma on CTAP. He is admitted under surgical team. Hospitalist team is consulted for medical recs. Plan: Hemoperitoneum Unclear etiology of bleeding but bleeding appears to have stopped Tbili increase may be 2/2 reabsorption of bleed, continue to monitor Further management/recs per surgery team Normocytic, acute blood loss anemia Patient is now s/p transfusion of 3 u of PRBCs H/H improved and remaining stable s/p transfusion indicating bleeding has likely stopped Continue to monitor closely, transfuse additional units as needed Leukocytosis Trending down overall Suspect most likely reactionary from hemorrhage Afebrile, normal lactate, negative SIRS BCx negative to date Continue zosyn per ID recs ID following, all recs appreciated Large Right Suprahilar Mass Identified on CTAP measuring 6.3 x 7.8 cm May represent intra lung parenchymal mass or mediastinal mass Will need biopsy for tissue diagnosis once patient is stabilized Will discuss case with IR for biopsy recs once stabilized Acute renal failure Suspect most likely 2/2 pre-renal azotemia from hemorrhage BUN/Cr improved this AM Consider nephrology consultation if worsening Hyponatremia Resolved Continue to monitor EtOH Abuse Continue CIWA protocol, anu and PRN ativan Second banana bag ordered and is running Continue to educate patient on importance of abstinence once alert and awake Tobacco Abuse Nicotine patch PRN once patient is awake and alert Advised on importance of smoking cessation to son, will continue education throughout patient's stay DVT/GI PPX: DVT ppx held for concern of bleed/protonix drip Full Code NPO Monitor in MICU Patient seen, examined, and plan discussed with my attending Dr. Joe Duke D.O. IM Resident PGY-1 Pager: [phone] <Lew Diaz - Last Filed: 04/05/18 17:34> Objective - Vital Signs/Intake and Output Vital Signs (last 24 hours): Temp Pulse Resp BP Pulse Ox 97.5 F L 101 H 17 129/72 100 04/05/18 04:00 04/05/18 10:20 04/05/18 10:20 04/05/18 10:00 04/05/18 10:20 Intake and Output: 04/05/18 04/05/18 06:59 18:59 Intake Total 360 Output Total 250 Balance 110 - Medications Medications: Current Medications Pantoprazole Sodium (Protonix 40mg Ivpb) 40 mg in 100 mls @ 20 mls/hr IVPB .Q5H ANU Last Admin: 04/05/18 10:03 Dose: 20 mls/hr Piperacillin Sod/Tazobactam Sod (Zosyn 3.375 In Ns 100ml) 100 mls @ 25 mls/hr IVPB Q8 ANU; Protocol Stop: 04/10/18 23:31 Last Admin: 04/05/18 15:00 Dose: 25 mls/hr Dexmedetomidine HCl (Precedex 400mcg/100ml) 400 mcg in 100 mls @ 2.923 mls/hr IV .Q24H PRN; Protocol PRN Reason: Agitation Last Admin: 04/05/18 13:33 Dose: 0.2 mcg/kg/hr, 2.923 mls/hr - Labs Labs: 04/05/18 05:00 04/05/18 05:00 PT 12.8 SECONDS (9.4-12.5) H 04/04/18 07:10 INR 1.13 04/04/18 07:10 APTT 27.4 Seconds (26.9-38.3) 04/04/18 07:10 Attending/Attestation - Attestation I have personally seen and examined this patient.: Yes I have fully participated in the care of the patient.: Yes I have reviewed all pertinent clinical information, including history, physical exam and plan: Yes Notes (Text): 04/05/18 17:32 Attending note/consult note; Patient seen and examined with resident in ICU. patient is sedated. not in acute distress. Patient is a 63 year old male with PMH of tobacco, EtOH abuse (12-14 cans of beer daily), and HTN who presented to ED with his son for the concern of worsening generalized weakness and inability to ambulate. 1. Generalized weakness; CT abdomen and pelvis showed large amount of dense ascites consistent with hemoperitoneum and hematoma in the mesentery located. No free air seen. Patient is currently monitored closely in ICU. No acute surgical intervention needed as per surgery. 2. Severe anemia; hemoglobin is 9.2. status post 3 unit PRBC transfusion. 3. Large right hilar mass; chest x-ray showed large right hilar mass of 6.3x 7.8 cm. Currently not in any acute respiratory distress. 4. Severe leukocytosis; Improving. Patient is currently on IV Zosyn. Panculture ordered. ID evaluation appreciated. 5. alcohol use. Patient is a heavy alcohol user. monitor for withdrawal symptoms. Continue IV Ativan. Continue IV banana bag. 6. Heavy smoking; complete smoking cessation will be advised. Case discussed with Dr. Bagley in detail. Monitor closely in ICU.
--- NOTE | 2018-04-05 11:54 | CP.PCM.PCO ---
Physician Communication Note - Physician Communication Note Physician Communication Note: Decr sedation/Transfuse 1 UPRBC/Cont cons Rx
--- NOTE | 2018-04-05 11:55 | PN ---
DATE: 04/05/2018 OUTPATIENT CLERK NOTE SUBJECTIVE: The patient is awake with family at bedside. The patient has fatigue and generalized weakness and no complaints of shortness of breath, no cough, no wheezing, no chest congestion, no obvious pain at this time. Note that he does complain of some mild abdominal discomfort, but no chest pain. OBJECTIVE: VITAL SIGNS: Note that his temperature is 97.3, pulse is 100, respirations of 14, BP is 138/88. SKIN: Warm and dry. HEENT: Head atraumatic, normocephalic. Eyes reactive to light. Ears, nose and throat seemed to be within normal limits. NECK: Supple. No JVD. No thyroid enlargement or lymph nodes. HEART: Regular rate and rhythm. Normal S1 and S2. LUNGS: Reveal rare rhonchi at the bases. ABDOMEN: Soft. Decreased bowel sounds. Slightly tender to palpation. GENITALIA/RECTAL: Deferred. MUSCULOSKELETAL: No joint deformities. EXTREMITIES: Reveal trace lower extremity edema. NEUROLOGIC: The patient is responsive and moving all extremities. LABORATORY DATA: As far as his laboratories are concerned, the patient's white count is 29.3, hemoglobin is 9.2, hematocrit is 27.4 with platelets of 150,000. Sodium is 137, potassium 3.6, chloride 103, CO2 of 26 with a BUN of 34, creatinine of 1.5 and a glucose of 90. IMPRESSION: As far as my impression, this person has a large ascites plus mesenteric hematoma proceeding with gastrointestinal bleed, as noted to have an oral lesion, etiology unclear, as well as a mediastinal mass, rule out carcinoma. He has a history of cirrhosis with chronic ethyl alcohol abuse, hypertension and chronic obstructive pulmonary disease. It is noted that he has anemia as well. PLAN: As far as our plan, we will monitor his hemoglobin closely. The patient is being followed closely by Surgery as well. He is on Ativan, Protonix and Zosyn. No family is at bedside and we will continue to treat aggressively and follow closely along with the other consultants and the primary care doctor. Lang Dowd MD
[2018-04-05] MEDS: Dexmedetomidine 400mcg/100mL 400 MCG/100 ML BOTTLE IV PRN (13:33)
--- NOTE | 2018-04-05 15:12 | PN ---
DATE: 04/05/2018 SUBJECTIVE: The patient is in bed, in no acute distress, nontoxic. He was seen earlier today in room 129, bed 2. Discussion with the nurse caring for the patient last night said that the patient had an uneventful night, no fever. PHYSICAL EXAMINATION VITAL SIGNS: Temperature 97.5, heart rate of 102, blood pressure 129/70, respiratory rate of 28. HEENT: Unremarkable. NECK: Supple. CARDIOPULMONARY: Heart exam show normal S1, S2. LUNGS: Lungs have decreased breath sounds.. ABDOMEN: Soft. LABORATORY DATA: Reveals a white count of 29,000, hemoglobin of 9, platelets of 150. Chemistry reveals a BUN of 34, creatinine of 1.5, procalcitonin of 1.66 as noted. Microbiology reveals MRSA screen is negative. The blood cultures are negative. Review of orders reveals the patient to be on Zosyn. Chest x-ray from yesterday is reviewed, he has a large 6.10 cm mass in the right upper lobe adjacent to the mediastinum. There is deviation of the trachea to the left. Dr progress note is reviewed. ASSESSMENT AND PLAN: This is a 63-year-old male seen earlier today in 129, bed 2, with a history of chronic alcoholism, tobacco use with systemic inflammatory response syndrome, mesenteric hematoma with ascites, the patient with alcoholism, alcoholic liver disease, mediastinal mass, currently on Zosyn and an intermittent vancomycin. Culture is negative. He will need a biopsy of the mediastinal mass. We will check on a final cultures. The methicillin-resistant Staphylococcus aureus screen is negative and the renal function appears to be improving. We also order an HIV test because of his age. We will follow with you. Siddharth Hunter MD
[2018-04-05] MEDS ORDERED: Sodium Chloride 0.9% 500 ML IV STA (20:16)
[2018-04-05] MEDS ORDERED: Sodium Chloride 0.9% 1,000 ML IV STA (21:58)
[2018-04-05 23:13] LABS: URINE APPEARANCE SLIGHT-CLOUDY (CLEAR); URINE BILIRUBIN SMALL (NEGATIVE); URINE BLOOD NEGATIVE (NEGATIVE); URINE COLOR DARK YELLOW (YELLOW); URINE GLUCOSE (UA) 100 mg/dL (NEGATIVE); URINE LEUKOCYTE ESTERASE NEGATIVE Leu/uL (NEGATIVE); URINE PROTEIN 30 mg/dL (<30 mg/dL)
[2018-04-05 23:16] LABS: URINE BACTERIA TRACE /hpf; URINE EPITHELIAL CELLS 0 - 2 /hpf (0-5); URINE HYALINE CAST 0 - 2 /hpf; URINE RBC 0 - 2 /hpf (0-2); URINE WBC 0 - 2 /hpf (0-6)
[2018-04-05 23:22] LABS: BASO # 0.02 K/mm3 (0.0-2.0); BASO % 0.1 % (0.0-3.0); HEMOGLOBIN 7.8 g/dL (14.0-18.0); LYMPH # 1.7 (1.2-3.4); LYMPH % 6.5 % (22.0-35.0); MEAN CELL VOLUME 95.6 fl (80.0-105.0); MEAN CORPUSCULAR HEMOGLOBIN 31.1 pg (25.0-35.0); MEAN CORPUSCULAR HGB CONC 32.5 g/dl (31.0-37.0); MEAN PLATELET VOLUME 10.2 fl (7.0-11.0); MONO # 1.6 (0.1-0.6); RBC 2.51 10^6/uL (3.5-6.1); RED CELL DISTRIBUTION WIDTH 16.7 % (11.5-14.5)
--- NOTE | 2018-04-05 23:31 | CP.PCM.PCO ---
Physician Communication Note - Physician Communication Note Physician Communication Note: BP dropping-?bleeding/Tx 1 UPRBC stat
[2018-04-06] MEDS: Dexmedetomidine 400mcg/100mL 400 MCG/100 ML BOTTLE IV PRN (00:56)
[2018-04-06] MEDS: Pantoprazole 40mg/100mL NS 40 MG/100 ML BAG IVPB SCH ×2 (04:02→18:14)
[2018-04-06] MEDS: Piperacillin/Tazobact 3.375 gm 100 ML IVPB SCH ×2 (05:11→18:14)
[2018-04-06 06:27] LABS: BASO # 0.02 K/mm3 (0.0-2.0); BASO % 0.1 % (0.0-3.0); EOS % 0.1 % (1.5-5.0); HEMOGLOBIN 10.1 g/dL (14.0-18.0); MEAN CELL VOLUME 96.9 fl (80.0-105.0); MEAN CORPUSCULAR HEMOGLOBIN 31.3 pg (25.0-35.0); MEAN CORPUSCULAR HGB CONC 32.3 g/dl (31.0-37.0); MEAN PLATELET VOLUME 10.8 fl (7.0-11.0); MONO # 1.4 (0.1-0.6); PLATELET COUNT 109 10^3/uL (120.0-450.0); RBC 3.23 10^6/uL (3.5-6.1); RED CELL DISTRIBUTION WIDTH 16.2 % (11.5-14.5)
[2018-04-06 06:37] LABS: ALB/GLOB RATIO 0.7 (1.1-1.8); ALBUMIN 2.3 g/dL (3.0-4.8); CALCIUM 7.6 mg/dL (8.4-10.5)
[2018-04-06 06:41] LABS: WHITE BLOOD COUNT 27.6 10^3/uL (4.5-11.0)
[2018-04-06] MEDS ORDERED: Sodium Chloride 0.9% 1,000 ML IV STA ×2 (08:31→16:17)
[2018-04-06] MEDS ORDERED: Sodium Chloride 0.9% 1,000 ML IV SCH (08:45)
[2018-04-06] MEDS ORDERED: Bupivacaine 0.5% 50 ML IJ ONE (10:25)
[2018-04-06] MEDS ORDERED: metroNIDAZOLE IV 500 mg/100 ml 0 MG/0 ML BAG ONE (10:25)
[2018-04-06] MEDS ORDERED: Etomidate 20 mg/10ml Inj IV ONE (10:26)
[2018-04-06] MEDS ORDERED: Succinylcholine 200 mg/10 ml Inj IV ONE (10:26)
--- NOTE | 2018-04-06 10:45 | CP.PCM.PN ---
<eMndoza Duke - Last Filed: 04/06/18 10:42> Subjective - Date & Time of Evaluation Date of Evaluation: 04/06/18 Time of Evaluation: 07:30 - Subjective Subjective: Mendoza Duke DO, PGY-1 Hospitalist Progress Note for Dr. Diaz Patient was seen and examined at bedside this AM. Patient is now on precedex dri p and sedated but continues to move all limbs spontaneously and is able to protect airway. Objective - Vital Signs/Intake and Output Vital Signs (last 24 hours): Temp Pulse Resp BP Pulse Ox 97.4 F L 93 H 13 125/68 100 04/06/18 04:00 04/06/18 06:46 04/06/18 06:46 04/06/18 06:46 04/06/18 06:46 Intake and Output: 04/06/18 04/06/18 06:59 18:59 Intake Total 3312 Output Total 450 Balance 2862 - Medications Medications: Current Medications Pantoprazole Sodium (Protonix 40mg Ivpb) 40 mg in 100 mls @ 20 mls/hr IVPB .Q5H ANU Last Admin: 04/06/18 04:02 Dose: 20 mls/hr Piperacillin Sod/Tazobactam Sod (Zosyn 3.375 In Ns 100ml) 100 mls @ 25 mls/hr IVPB Q8 ANU; Protocol Stop: 04/10/18 23:31 Last Admin: 04/06/18 05:11 Dose: 25 mls/hr Dexmedetomidine HCl (Precedex 400mcg/100ml) 400 mcg in 100 mls @ 2.923 mls/hr IV .Q24H PRN; Protocol PRN Reason: Agitation Last Admin: 04/06/18 00:56 Dose: 0.7 mcg/kg/hr, 10.232 mls/hr Sodium Chloride (Sodium Chloride 0.9%) 1,000 mls @ 250 mls/hr IV .Q4H ANU - Labs Labs: 04/06/18 05:30 04/06/18 05:30 PT 12.8 SECONDS (9.4-12.5) H 04/04/18 07:10 INR 1.13 04/04/18 07:10 APTT 27.4 Seconds (26.9-38.3) 04/04/18 07:10 - Constitutional Appears: Unkempt, Chronically Ill, Other (poor oral hygiene, sedated but moving all extremities spontaneously) - Head Exam Head Exam: ATRAUMATIC, NORMOCEPHALIC - Eye Exam Eye Exam: EOMI, PERRL - ENT Exam ENT Exam: Mucous Membranes Moist Additional comments: Poor oral hygiene. Apparent dried blood is present throughout the pharynx. There is a possible whitish area in the right upper pharynx that may represent an ulcer and/or mass - Neck Exam Neck Exam: Full ROM, Normal Inspection. absent: Lymphadenopathy - Respiratory Exam Respiratory Exam: Rhonchi (coarse breath sounds b/l improved from prior exams). absent: Accessory Muscle Use, Rales, Wheezes, Respiratory Distress, Stridor - Cardiovascular Exam Cardiovascular Exam: REGULAR RHYTHM, RRR, +S1, +S2. absent: Gallop, Rubs, Murmur - GI/Abdominal Exam GI & Abdominal Exam: Distended, Firm, Normal Bowel Sounds Additional comments: Abdomen appears firmer compared to prior exams, patient flinches with palpation of abdomen likely indicating tenderness - Extremities Exam Extremities Exam: Full ROM. absent: Pedal Edema - Back Exam Back Exam: NORMAL INSPECTION - Neurological Exam Additional comments: sedated but moving all extremities spontaneously, able to protect airway - Skin Skin Exam: Dry, Intact, Warm Assessment and Plan - Assessment and Plan (Free Text) Assessment: 63 yo M with PMH of tobacco, EtOH abuse (12-14 cans of beer daily), and HTN pre sented to ED with generalized weakness found to have hemoperitoneum and peritoneal hematoma on CTAP. He is admitted under surgical team. Hospitalist team is consulted for medical recs. Plan: Hemoperitoneum No definitive source identified yet, may be 2/2 occult GIB from malignancy Patient has been intermittently hypotensive since last night that has required 3 IVF boluses Additional management of hypotension per ICU team Patient's abdominal exam appears more firm, rigid today Recommend bleeding scan to r/o occult GIB Recommend GI consult as needed Further management/recs per surgery team Normocytic, acute blood loss anemia Patient received an additional 2 units PRBCs last night H/H now improved to 10.1/31.3 Continue to monitor closely, transfuse additional units as needed Leukocytosis Has remained stable but significant bandemia is present 1 BCx now positive for GPC Will contact ID regarding recs for additional antibiotics, on zosyn alone now ID following, all recs appreciated Large Right Suprahilar Mass Identified on CTAP measuring 6.3 x 7.8 cm May represent lung parenchymal or mediastinal mass Will need biopsy for tissue diagnosis once patient is stabilized Will discuss case with IR for biopsy recs once stabilized Recommend Heme/Onc consult especially after biopsy results are obtained Acute renal failure Suspect most likely 2/2 pre-renal azotemia from sustained hemorrhage BUN/Cr down from admission but renal dysfunction still present Renal dose all medicines, avoid nephrotoxic agents if possible Consider nephrology consultation if worsening EtOH Abuse Continue CIWA protocol, anu and PRN ativan Continue IVF resuscitation Continue to educate patient on importance of abstinence once alert and awake Tobacco Abuse Nicotine patch PRN once patient is awake and alert Advised on importance of smoking cessation to son, will continue education throughout patient's stay DVT/GI PPX: DVT ppx held for concern of bleed/protonix drip Full Code NPO Monitor in MICU Patient seen, examined, and plan discussed with my attending Dr. Joe Duke, D.O. IM Resident PGY-1 Pager: [phone] <Lew Diaz - Last Filed: 04/06/18 13:57> Objective - Vital Signs/Intake and Output Vital Signs (last 24 hours): Temp Pulse Resp BP Pulse Ox 97.4 F L 93 H 13 125/68 100 04/06/18 04:00 04/06/18 06:46 04/06/18 06:46 04/06/18 06:46 04/06/18 06:46 Intake and Output: 04/06/18 04/06/18 06:59 18:59 Intake Total 3312 Output Total 450 Balance 2862 - Medications Medications: Current Medications Pantoprazole Sodium (Protonix 40mg Ivpb) 40 mg in 100 mls @ 20 mls/hr IVPB .Q5H ANU Last Admin: 04/06/18 04:02 Dose: 20 mls/hr Piperacillin Sod/Tazobactam Sod (Zosyn 3.375 In Ns 100ml) 100 mls @ 25 mls/hr IVPB Q8 ANU; Protocol Stop: 04/10/18 23:31 Last Admin: 04/06/18 05:11 Dose: 25 mls/hr Dexmedetomidine HCl (Precedex 400mcg/100ml) 400 mcg in 100 mls @ 2.923 mls/hr IV .Q24H PRN; Protocol PRN Reason: Agitation Last Admin: 04/06/18 00:56 Dose: 0.7 mcg/kg/hr, 10.232 mls/hr Sodium Chloride (Sodium Chloride 0.9%) 1,000 mls @ 250 mls/hr IV .Q4H ANU Daptomycin 350 mg/ Sodium (Chloride) 100 mls @ 200 mls/hr IV Q24H ANU; Protocol Stop: 04/16/18 11:16 Fentanyl Citrate (Fentanyl Citrate/Sodium Chloride 1 Mg/100 Ml) 1,000 mcg in 100 mls @ 5 mls/hr IV .Q20H PRN; Protocol PRN Reason: TITRATE PER MD ORDER Vasopressin 20 units/ Dextrose 101 mls @ 60.6 mls/hr IV .Q1H40M ANU; Protocol - Labs Labs: 04/06/18 11:50 04/06/18 11:50 PT 12.8 SECONDS (9.4-12.5) H 04/04/18 07:10 INR 1.13 04/04/18 07:10 APTT 27.4 Seconds (26.9-38.3) 04/04/18 07:10 Attending/Attestation - Attestation I have personally seen and examined this patient.: Yes I have fully participated in the care of the patient.: Yes I have reviewed all pertinent clinical information, including history, physical exam and plan: Yes Notes (Text): 04/06/18 13:49 Attending note/consult note; Patient seen and examined with resident in ICU. patient is sedated on precedex. not in acute distress. had dried blood in the mouth. No active bleeding noted. Patient received 2 units of PRBC last night due to low hemoglobin. Patient also had episodes of hypotension. Currently getting IV fluids. Abdomen is tense. Patient is a 63 year old male with PMH of tobacco, EtOH abuse (12-14 cans of beer daily), and HTN who presented to ED with his son for the concern of worsening generalized weakness and inability to ambulate. 1. Generalized weakness; CT abdomen and pelvis showed large amount of dense ascites consistent with hemoperitoneum and hematoma in the mesentery located. No free air seen. Patient is currently monitored closely in ICU. Patient had drop in hemoglobin and got 2 units of PRBC transfusion last night. Hypotension; secondary to hypovolemic shock/hemorrhagic. Continue IV fluids and blood transfusion. Might need pressors. case Discussed with ICU attending in detail. Abdomen is tense today. Case discussed with surgical attending in detail. Patient might need to go to the OR for emergency procedure. 2. Severe anemia; secondary to intraperitoneal bleed. The patient got 5 units PRBC so far. Hemoglobin is 10.1. Repeat hemoglobin is 8.2. Blood and FFP ordered. 3. Large right hilar mass; chest x-ray showed large right hilar mass of 6.3x 7.8 cm. Currently not in any acute respiratory distress. 4. Severe leukocytosis; Improving. Patient is currently on IV Zosyn and dapt omycin. Blood culture is growing gram-positive cocci. Urine culture is pending. Follow-up closely . ID evaluation appreciated. 5. alcohol use. Patient is a heavy alcohol user. on precedex. 6. Heavy smoking; complete smoking cessation will be advised. Case discussed with Dr. Bagley in detail. Case discussed with patient's son and by the bedside. Poor prognosis explained. Patient is going to OR for emergency procedure today. Risks and benefits explained in detail. Time spent over 1 hour discussing with PMD, anesthesia, ICU team and family. 04/06/18 13:57
[2018-04-06] MEDS ORDERED: ePHEDrine 50 mg/ml Inj ONE (10:48)
[2018-04-06] MEDS ORDERED: Phenylephrine 10 mg/ml Inj ONE (10:48)
[2018-04-06] MEDS ORDERED: Lidocaine 1% Inj (20ml) ONE (10:57)
[2018-04-06] MEDS ORDERED: Rocuronium 10 mg/ml (5 ml) ONE (12:13)
[2018-04-06 12:57] LABS: ARTERIAL BLOOD GAS HCO3 22.1 mmol/L (21-28); ARTERIAL BLOOD GAS HEMOGLOBIN 9.1 g/dL (11.7-17.4); ARTERIAL BLOOD GAS O2 CAPACITY 12.8 mL/dl (16-24); ARTERIAL BLOOD GAS O2 CONTENT 12.9 ML/dl (15-23); ARTERIAL BLOOD GAS O2 SAT 100.5 % (95-98); ARTERIAL BLOOD GAS PCO2 42 mm/Hg (35-45); ARTERIAL BLOOD GAS PH 7.33 (7.35-7.45); ARTERIAL BLOOD GAS TCO2 23.4 mmol.L (22-28)
[2018-04-06 13:05] LABS: BASO # 0.01 K/mm3 (0.0-2.0); EOS % 0.2 % (1.5-5.0); HEMOGLOBIN 8.2 g/dL (14.0-18.0); MEAN CELL VOLUME 91.8 fl (80.0-105.0); MEAN CORPUSCULAR HEMOGLOBIN 30.5 pg (25.0-35.0); MEAN CORPUSCULAR HGB CONC 33.2 g/dl (31.0-37.0); MEAN PLATELET VOLUME 10.3 fl (7.0-11.0); MONO % 4.5 % (1.0-6.0); PLATELET COUNT 107 10^3/uL (120.0-450.0); RBC 2.69 10^6/uL (3.5-6.1); RED CELL DISTRIBUTION WIDTH 15.6 % (11.5-14.5); WHITE BLOOD COUNT 21.5 10^3/uL (4.5-11.0)
[2018-04-06 13:12] LABS: ALB/GLOB RATIO 0.7 (1.1-1.8); ALBUMIN 1.4 g/dL (3.0-4.8); ALT/SGPT 21 U/L (7-56); AST/SGOT 66 U/L (17-59); BLOOD UREA NITROGEN 36 mg/dL (7-21); GFR NON-AFRICAN AMERICAN > 60
[2018-04-06] MEDS: NOREPINEPHRINE BIT/0.9 % NACL 4 MG/250 ML BAG IV PRN ×2 (13:15→18:09)
[2018-04-06] MEDS ORDERED: Fentanyl 1000mcg/100ml NS 1,000 MCG/100 ML BAG IV PRN (13:25)
[2018-04-06 13:34] LABS: BAND 5 % (0-2); HYPOCHROMIA 1+; LYMPHOCYTE 6 % (22.0-35.0); MONOCYTE 3 % (1.0-6.0); NEUTROPHIL 86 % (50.0-70.0); PLATELET ESTIMATE LOW (NORMAL); POLYCHROMASIA SLIGHT
[2018-04-06 13:35] LABS: ANISOCYTOSIS 1+; BURR CELLS SLIGHT; OVALOCYTES SLIGHT; POIKILOCYTOSIS SLIGHT; TEAR DROP CELLS SLIGHT
--- NOTE | 2018-04-06 13:35 | PCM.SURG1 ---
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 evacuation of hemoperitoneum and tumor bx Specimen/Specimens Removed: tumor implant Estimated Blood Loss: EBL {In ML}: 5,200 Blood Products Given: PRBC (4U) Drains Used: No Drains Post-Op Condition: Critical Date of Surgery/Procedure: 04/06/18 Time of Surgery/Procedure: 13:35
[2018-04-06] MEDS ORDERED: Vasopressin 20 UNITS in Dextrose 5% In Water 100 ML IV SCH ×2 (13:45→13:54)
--- NOTE | 2018-04-06 13:49 | PCM.PROC ---
Procedures Attestation:: I certify that I have explained the specified Operation(s) or Procedure(s), risks, benefits and reasonable alternatives to the Patient and/or other person responsible. The opportunity was given to ask questions and all questions answered - Arterial Line Right Radial Aseptic technique was employed throughout the procedure: Hand Hygiene done prior to procedure, Full sterile barriers (mask, hair cover, sterile gown, sterile gloves) Time Out Performed: Yes Pt. placed on Pulse Ox Monitor: Yes Central Line Prep: Chlorhexidine-Alcohol Combination Ultrasound Used for Placement: Yes Gauge (Size): 20 gauge Technique Used: Guide Wire Technique Secured by: Suture Post procedure dressing: Clear vapor permeable Patient Tolerated Procedure: well Immediate Complications: none - Central Line Placement Right Subclavian Triple Lumen Catheter Aseptic technique was employed throughout the procedure: Hand Hygiene done prior to procedure, Full sterile barriers (mask, hair cover, sterile gown, sterile gloves), Full body sterile drape, Chloraprep Antiseptic: 30 second prep for IJ or SC sites Pt. Placed on Pulse Ox Monitor: Yes Central Line Prep: Chlorhexidine-Alcohol Combination Ultrasound Used for Placement: No Central Line Lumen Inserted: triple Central Line Length: 20 cm Post Procedure: Sutured in Place, Good Blood Return, All Ports Aspirated, Flushed, Capped, Sterile Dressing Applied Secured by: Suture Post procedure dressing: Clear vapor permeable, Chlorhexidine disc (Biopatch) Post Procedure X-Ray: Yes Patient Tolerated Procedure: Well Immediate Complications: None
--- NOTE | 2018-04-06 13:51 | CP.PCM.PCO ---
Physician Communication Note - Physician Communication Note Physician Communication Note: Palliative care consulted, voicemail left
--- NOTE | 2018-04-06 13:56 | CP.PCM.PCO ---
Physician Communication Note - Physician Communication Note Physician Communication Note: Discussion had w. pt , agree for DNR
[2018-04-06 14:07] LABS: INR 1.26; PARTIAL THROMBOPLASTIN TIME 29.9 Seconds (26.9-38.3)
[2018-04-06 14:20] LABS: CALCIUM 7.4 mg/dL (8.4-10.5)
--- NOTE | 2018-04-06 14:29 | RAD ---
Date of service: 04/06/2018 HISTORY: s/p intubation CVC R subclavian COMPARISON: 04/04/2018 FINDINGS: Endotracheal tube terminates in the mid trachea. The right PICC line terminates at the cavoatrial junction. LUNGS: The lungs are well inflated. There is redemonstration of a large lobular right suprahilar mass. There is new right lower lobe airspace disease. The left lung is clear. PLEURA: Interval development of right moderate right pleural effusion. No pneumothorax. CARDIOVASCULAR: The heart is normal in size. No aortic atherosclerotic calcifications present. OSSEOUS STRUCTURES: Within normal limits for the patient's age. VISUALIZED UPPER ABDOMEN: Normal. OTHER FINDINGS: None. IMPRESSION: Endotracheal tube terminates in the mid trachea. The right PICC line terminates at the cavoatrial junction. Redemonstration of large lobular suprahilar mass. Interval development of right lower lobe airspace disease which may represent atelectasis/ pneumonia or effusion.
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
--- NOTE | 2018-04-06 15:19 | PN ---
DATE: 04/06/2018 SUBJECTIVE: The patient is in bed, in no acute distress, was seen earlier in [facility], bed 2. PHYSICAL EXAMINATION: VITAL SIGNS: Temperature is 97, blood pressure is 125/68, respiratory rate of 18, heart rate of 93. HEENT: Unremarkable. NECK: Supple. LUNGS: Have decreased breath sounds. HEART: Normal S1, S2. ABDOMEN: Soft. LABORATORY DATA: White count of 27,600, hemoglobin of 10 and platelets of 109. Chemistries reveals a BUN of 43, creatinine of 1.6. The patient's procalcitonin is 1.66 and urinalysis is noted and toxicology is noted. Microbiology reveals there is a gram-positive cocci in the blood in one bottle, it is in chains. The second bottle is negative. This was not reported to me as of this morning. Review of orders reveals the patient to be on Zosyn. ASSESSMENT AND PLAN: This is a 63-year-old male who was seen earlier today in [facility], bed 2 with history of chronic alcoholism and tobacco use, now with sepsis with a gram-positive cocci bacteremia and gram-positive cocci in chains, bacteremia, mesenteric hematoma and ascites in a patient with alcoholic liver disease, mediastinal mass, on intermittent vancomycin and Zosyn. We will need a biopsy of the mediastinal mass and we will add daptomycin pending identification and sensitivity of the gram-positive cocci in the blood and we will repeat blood cultures x2. The patient had an echo on the 04/04/2018 which was read by Dr. Lundy which is reviewed. We will follow closely with you. Siddharth Hunter MD
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
[2018-04-06] MEDS ORDERED: NOREPINEPHRINE BIT/0.9 % NACL 4 MG/250 ML BAG IV ONE (16:07)
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
--- NOTE | 2018-04-06 17:17 | PN ---
DATE: 04/06/2018 EDUCATION DIRECTOR NOTE SUBJECTIVE: The patient is responsive, family is at bedside. O2 via nasal cannula. The patient had 2 units of packed red blood cells last night for hemoglobin had dropped in the seven range. The patient's hemoglobin is approximately 10 this morning. Surgery is reevaluating the patient to see if surgical intervention is necessary at this point. The patient is on Precedex and has gotten a bolus IV fluid to stabilize his blood pressure. No respiratory distress at this time. PHYSICAL EXAMINATION: VITAL SIGNS: Temperature is 97.4, pulse is 93, respirations are 13 and his BP is 125/68. SKIN: Warm and dry. HEENT: Head atraumatic, normocephalic. Eyes reactive to light. Ear, nose and throat seem to be within normal limits. NECK: Supple. No JVD. No thyroid enlargement or lymph nodes. HEART: Has regular rate and rhythm. Normal S1, S2. LUNGS: Reveal fairly good breath sounds bilaterally. ABDOMEN: Soft, but slightly tender to palpation, little to no bowel sounds. GENITALIA AND RECTAL: Deferred. MUSCULOSKELETAL: No joint deformities. EXTREMITIES: Reveal trace lower extremity edema. NEUROLOGIC: He is moving all extremities. LABORATORY DATA: As far as his laboratory, his white count is 27.6, hemoglobin is 10.1, hematocrit 31.3 with platelets of 109,000. The patient's sodium is 139, potassium 5.2, chloride 111, CO2 of 20 with a BUN of 43, creatinine of 1.6 and a glucose of 106. IMPRESSION: As far as my impression, this patient has large ascites plus mesenteric hematoma and status post gastrointestinal bleed. It is noted that he has oral lesion, etiology unclear as well as a mediastinal mass, rule out carcinoma. The patient has a history of cirrhosis as well as EtOH abuse, hypertension, chronic obstructive pulmonary disease and anemia. PLAN: As far as our plan, Surgery is reevaluating the patient to see if they should take him to surgery today and we are monitoring his hemoglobin closely. The patient has family at bedside. He is on Precedex as well as has received 2 units of packed red blood cells and normal saline bolus for stabilization of his blood pressure. He continues to be on Protonix as well as Zosyn and we are following closely along with the other consultants and the primary care doctors. Lang Dowd MD [facility] # [id number]
--- NOTE | 2018-04-06 21:04 | CP.PCM.PRO ---
<Omi Villalpando - Last Filed: 04/06/18 21:18> Pronouncement of Note - Clinical Findings Physical Exam: No Response Verbal/Painful Stimuli, Absent Peripheral Pulses{Carotid & Femoral}, Absent Heart & Breath Sounds, No Pupillary Light Reflex, No Corneal Reflex, Pupils Fixed & Dilated, Absence of Vital Signs - Pronouncement Time Time of Pronouncement of : 21:00 - Notifications Pronouncement Notifications: Family Notified (at bedside), Atending Notified [place] [id number] <Chasidy Mclaughlin - Last Filed: 04/06/18 23:29> Attending/Attestation - Attestation I have personally seen and examined this patient.: No I have fully participated in the care of the patient.: No I have reviewed all pertinent clinical information: No
--- NOTE | 2018-04-06 22:11 | CP.PCM.PCO ---
Physician Communication Note - Physician Communication Note Physician Communication Note: Body released
[2018-04-07 01:06] VITALS: BP 87/60; PULSE 107; RESP 6; TEMP 99
--- NOTE | 2018-04-07 19:41 | CON ---
DATE: 04/07/2018 The patient has after terminal care given through the aide of nurse, Janna. I had seen this patient prior to the operation, discussed the patient at length with a resident, Dr. Bagley. Reviewed the CAT scan independently. The patient was known to be a gentleman who consumed large amount of alcohol for long period of time presenting with malaise in the emergency room having 10 cm mass in the chest. In addition, there was fluid in the abdomen and some abdominal pain. CAT scan revealed a mass in the mesentery and/or small bowel. I reviewed this myself, this was done without IV or oral contrast, and I believe that there was lumen in this mass consistent with the hematoma of the bowel and/or close to the mesentery. I do not think there was perforation. In any case, there was a large amount of fluid in the abdomen, over the liver and in the pelvis. There was free fluid with unit ranging between 30 and 40 consistent with hematoma, had received multiple units of blood. The hemoglobin was in the 9 to 10 range. Coags were slightly elevated. PT and PTT was normal. Liver functions; bilirubin elevated at 5.3, AST slightly elevated at 63, Alk phos was normal. 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 Discussed with resident, Dr. Bagley laparotomy was indicated. At the time of laparotomy, it was found to be unresectable tumor of the mesentery. The patient was getting consequent blood as needed and transferred back to the ICU. I was not at the operating room, I cannot comment on the resectable of the tumor, but it was deemed unresectable and it continuous to bleed. I do not think this was a survival injury and agree with nonoperative management. There was a possibility that an IR intervention might be worthwhile, although it would be very reluctant to do it to embolize small bowel because of the risk of perforation. I agree making the patient a DNR in terminal extubation. I do not think this was survivable injury in the phase of metastatic disease, the large tumor in the mediastinum. This was probably metastatic, certainly non-curable. Michel Wall MD [facility] # [id number]
--- NOTE | 2018-04-08 02:00 | OP ---
PROCEDURE DATE: 04/06/2018 SURGEON: Eros Bagley MD COUNTERINTELLIGENCE/HUMINT SPECIALIST: Tyron Salinas DO, PGY-4. SR RISK MANAGEMENT CONSULTANT: Jordan Crowley MD ANESTHESIA: General endotracheal. PREOPERATIVE DIAGNOSES: Massive hemoperitoneum - hypotension - anemia - lung and abdomen tumor. POSTOPERATIVE DIAGNOSES: Massive hemoperitoneum - hypotension - anemia - lung and abdomen tumor with extensive mesentery small bowel tumor (total) with massive hemoperitoneum (5.2 L). PROCEDURES: 1. Emergency exploratory laparotomy. 2. Evacuation of hematoma. 3. Biopsy of mesenteric tumor. 4. Partial omentectomy. 5. Insertion of triple lumen catheter. 6. Insertion of right radial arterial line. OPERATIVE INDICATIONS: The patient is a 63-year-old male who started feeling bad approximately 5 weeks earlier so his private physician underwent blood testing and x-rays which were essentially normal. At that time, his hemoglobin was 18 which suggested a polycythemia condition, and his chest x-ray was clear. On the day of the patient's admission to the hospital, he had his family bring him to Dr. Bagley office where he was able to barely make it into the office ambulating on his own, and had the appearance of having lost 10 units of blood. He had black tarry stool and was extremely weak and short of breath. He was referred to the emergency room where they found his hemoglobin had dropped to 8 from 18 indicating a 10-unit loss, and his chest x-ray demonstrated a very large 7 x 8 cm mass in the subhilar region on the right. This was not there on the previous x-ray 6 weeks earlier. The patient also underwent a CAT scan of the abdomen which did confirm the massive hemoperitoneum, and a large defect in the mid small bowel consistent with a hematoma and the source of the abdominal bleeding. The patient was initially resuscitated and given 3 units of blood. His hemoglobin yasmin into the mid 9 range, and only on the night before the date of surgery, did it drop along with a blood pressure from 130 and dropped into the 81 range. At this point, the patient was given two more units of blood. The blood count went up to 9. His coags were relatively normal, and he remained markedly obtunded and sedated and started to drop his blood pressure following the 2 units of transfusion. Discussion was held with the family regarding the urgent need for correcting the bleeding state, and the consent was signed by the and the son was extremely upset and did not want to have surgery, was hoping for delay of another day, only the recognizing the seriousness of this condition overrode his objections, and the patient went to the operating room on an extremely urgent basis. OPERATIVE NOTE: The patient is brought to the operating room, identified by his wrist band, undergoes time-out procedure. He was placed on the table in a supine manner and is given oxygenation and significant intravenous fluid is instilled at this point, and 2 units of blood were obtained from the blood bank on an urgent basis. His blood pressure was averaging systolic 70 mmHg, and at this point, a right subclavian central line was inserted and a right radial arterial line was inserted, and after giving Pablo-Synephrine and then changing to epinephrine, the blood pressure yasmin to 120, and the patient underwent general anesthesia, and the insertion of an endotracheal tube using a Glidescope. Tarry material was seen coming from the esophagus which was evacuated immediately, and the balloon inflated, and the patient's GI loss did not enter into the pulmonary tree. The abdomen is prepped with Hibiclens chlorhexidine preparation and aseptically draped. The patient's abdomen has markedly distended and has become rigid, and the patient has remained obtunded and barely responsive to verbal stimuli or pain due to fear of previous DTs or impending alcohol withdrawal. Midline incision is made and sharp dissection is carried on through to the peritoneum below which when opened evacuates approximately 50 to 100 mL of a red dilute bloody fluid, and when completely removed, the abdomen is now explored and the liver is felt to be normal. The spleen is slightly enlarged, and the small bowel mesentery appears to be encased in a tumor from beginning to end with a large mass in the mid small bowel that appears to be one of the major sources of the bleeding and may be more than just tumor, may be hemorrhage from the tumor. At this point, the entire small bowel is attempted to be freed, and see if there is a possibility of the resection, and while this is being done, portions of the omentum are removed with serial clamp and 2-0 chromic catgut ligature. This omentum contains a portion of the tumor, and the mesentery likewise has a portion of tumor as well which is removed and submitted to pathology in formalin. Extensive discussion at this point was held between the operating surgeons, and it was felt that removal of the entire small bowel would now removed the entirety of the bleeding tumor, and the patient's blood pressure was markedly unstable at this point. The anesthesiologist was encouraging earlier and to the procedure. It was elected at this point after packing the abdomen with multiple tapes to close the abdomen without doing any resection, and this was done with a double stranded #2 closure of PDS suture. The skin was then closed with the AutoSuture skin stapler, and the patient was transported back to the intensive care unit with a blood pressure of 90 and a pulse of 118. Estimated blood loss during this procedure was the abdominal hematoma of approximately 50 to 100 mL, and the sponge and instrument count were considered correct at the end of the procedure. The patient's family was waiting in the room when the operating team and the patient brought the patient back to the ICU, and discussion ensued all the findings, and the patient's family were exceptionally shocked, and the recommendation from this surgeon for palliative care, and no more resuscitative measures was agreed by the who insisted on DNR. The patient's son became agitated and continued objection as stated he wanted him kept alive. He wanted another surgeon. He wanted a chance at removing the tumor that will give him a chance to live a little bit longer, and at this point, the patient's mother being the legal power of assistant district attorney at this point as the patient can no longer speak for himself, she decided that there will be a DNR, and she overrode the son's objections and extensive discussion over the next hour was held to attempt to plicate the son's concern. Xanax was given by prescription to the patient's , and she will accordingly use it as needed. This operative dictation will be electronically signed without being read. Eros Bagley MD
== END 2018-04-06 20:59 | DRG 374 ==
LOC: ED 13:52 → ERH 17:19 → CCU 20:03
PROVIDERS: ADMIT Surgery; ATTEND Surgery
PROC: 30233N1 Transfusion of Nonautologous Red Blood Cells into Peripheral Vein, Percutaneous Approach (ICD-10-PCS; 2018-04-03)
PROC: B546ZZA Ultrasonography of Right Subclavian Vein, Guidance (ICD-10-PCS; 2018-04-06)
PROC: 03HY32Z Insertion of Monitoring Device into Upper Artery, Percutaneous Approach (ICD-10-PCS; 2018-04-06)
PROC: B34HZZZ Ultrasonography of Right Upper Extremity Arteries (ICD-10-PCS; 2018-04-06)
PROC: 05H533Z Insertion of Infusion Device into Right Subclavian Vein, Percutaneous Approach (ICD-10-PCS; principal; 2018-04-06 11:00)
DX: C78.6 Secondary malignant neoplasm of retroperitoneum and peritoneum (principal); A41.9 Sepsis, unspecified organism; S36.892A Contusion of other intra-abdominal organs, initial encounter; K92.2 Gastrointestinal hemorrhage, unspecified; E87.1 Hypo-osmolality and hyponatremia; F10.239 Alcohol dependence with withdrawal, unspecified; R57.1 Hypovolemic shock; R57.8 Other shock; J39.8 Other specified diseases of upper respiratory tract; I10 Essential (primary) hypertension; F17.200 Nicotine dependence, unspecified, uncomplicated; J44.9 Chronic obstructive pulmonary disease, unspecified; K70.31 Alcoholic cirrhosis of liver with ascites; K06.8 Other specified disorders of gingiva and edentulous alveolar ridge; K64.9 Unspecified hemorrhoids; D50.0 Iron deficiency anemia secondary to blood loss (chronic); B96.89 Other specified bacterial agents as the cause of diseases classified elsewhere; N19 Unspecified kidney failure; Z51.5 Encounter for palliative care; Z66 Do not resuscitate; Z82.49 Family history of ischemic heart disease and other diseases of the circulatory system; Z87.01 Personal history of pneumonia (recurrent); Z53.8 Procedure and treatment not carried out for other reasons